=== PATIENT | male | born 1960 | race Caucasian/White ===

== ENCOUNTER → 2020-07-03 14:37 | Outpatient (BNVA) | payer OTHER, SELFPAY | PROVIDERS: PCP Internal Medicine; Referring Provider Internal Medicine; Visit Provider Nurse Practitioner Family | DX: Z76.89 Persons encountering health services in other specified circumstances (principal) ==

== ENCOUNTER 2020-08-04 08:49 | Outpatient (REF) | payer OTHER, SELFPAY | END 2020-08-04 08:50 | disposition home or self-care (01) | LOC: HO.LAB 08:49 | PROVIDERS: PCP Internal Medicine; Visit Provider Internal Medicine | DX: Z20.828 Contact with and (suspected) exposure to other viral communicable diseases (principal) | CPT/HCPCS: U0003 ==

== ENCOUNTER → 2020-08-28 11:55 | Outpatient (BNVA) | payer OTHER, SELFPAY | PROVIDERS: PCP Internal Medicine; Referring Provider Internal Medicine; Visit Provider Internal Medicine Endocrinology, Diabetes & Metabolism | DX: Z76.89 Persons encountering health services in other specified circumstances (principal) ==

== ENCOUNTER 2020-08-29 09:09 | Outpatient (REF) | payer OTHER, SELFPAY ==
[2020-08-29 10:25] LABS: Hematocrit 47.2 % (42-52); Hemoglobin 15.3 g/dl (14.0-18.0); Mean Corpuscular HGB Conc 32.4 g/dl (31.0-36.0); Mean Corpuscular Hemoglobin 29.3 pg (27.0-33.0); Mean Corpuscular Volume 90.2 fL (80-98); Mean Platelet Volume 9.6 fL (9.4-12.4); Platelet Count 124 X10*3/uL (160-400); Red Blood Count 5.23 X10*6/uL (4.60-5.80); Red Cell Distribution Width 13.5 % (11.0-16.0); White Blood Count 4.3 X10*3/uL (4.8-10.8)
[2020-08-29 10:54] LABS: Estimated Average Glucose 137 mg/dL; Hemoglobin A1c % 6.4 %
[2020-08-29 11:03] LABS: Alanine Aminotransferase 106 U/L (0-40); Albumin Level 4.1 g/dL (3.5-5.0); Alkaline Phosphatase 87 U/L (39-117); Anion Gap 14 (12-20); Aspartate Amino Transferase 186 U/L (5-37); Blood Urea Nitrogen 21 mg/dL (9-16); Calcium 8.8 mg/dL (8.4-10.2); Carbon Dioxide 30 mmol/L (22-29); Chloride 101 mmol/L (96-108); Cholesterol 136 mg/dL; Estimated Glomerular Filt Rate 54; Glucose Fasting 125 mg/dL (60-99); HDL Cholesterol 50 mg/dL; LDL Cholesterol Calculated 77 mg/dl; Potassium 4.9 mmol/l (3.3-5.1); Sodium 140 mmol/L (135-145); Total Protein 7.1 g/dL (6.5-8.0); Triglycerides 46 mg/dL
[2020-08-29 11:18] LABS: Creatinine Urine 86.81 mg/dL; Microalbum/Creatinine Ratio Ur 176.2 ug/mg cr
[2020-08-29 11:18] LABS: Vitamin D 25-OH Total 34.8 ng/mL (>30)
[2020-08-29 11:21] LABS: Vitamin B12 826 pg/mL (200-900)
[2020-08-30 09:47] LABS: LDL Cholesterol Direct 81 mg/dL (<100)
== END 2020-08-29 09:10 | disposition home or self-care (01) ==
LOC: HO.10HDL 09:09
PROVIDERS: Visit Provider Internal Medicine Endocrinology, Diabetes & Metabolism
DX: E11.65 Type 2 diabetes mellitus with hyperglycemia (principal)
CPT/HCPCS: 36415; 80053; 80061; 82043; 82306; 82607; 83036; 83721; 85027

== ENCOUNTER → 2020-09-07 15:17 | Outpatient (BNVA) | payer OTHER, SELFPAY | PROVIDERS: PCP Internal Medicine; Visit Provider Nurse Practitioner Family | DX: Z76.89 Persons encountering health services in other specified circumstances (principal) ==

== ENCOUNTER 2020-09-08 07:23 | Outpatient (REF) | payer OTHER, SELFPAY ==
[2020-09-08 08:10] LABS: Red Cell Distribution Width 13.2 % (11.0-16.0)
[2020-09-08 08:12] LABS: Hematocrit 46.3 % (42-52); Hemoglobin 15.2 g/dl (14.0-18.0); Mean Corpuscular HGB Conc 32.8 g/dl (31.0-36.0); Mean Corpuscular Hemoglobin 29.2 pg (27.0-33.0); Mean Platelet Volume 9.2 fL (9.4-12.4); Platelet Count 123 X10*3/uL (160-400)
[2020-09-08 08:41] LABS: Alanine Aminotransferase 94 U/L (0-40); Alkaline Phosphatase 91 U/L (39-117); Anion Gap 11 (12-20); Aspartate Amino Transferase 36 U/L (5-37); Bilirubin Total 0.4 mg/dL (0.0-1.0); Blood Urea Nitrogen 27 mg/dL (9-16); Calcium 9.3 mg/dL (8.4-10.2); Carbon Dioxide 31 mmol/L (22-29); Chloride 104 mmol/L (96-108); Estimated Glomerular Filt Rate 50; Glucose Random 133 mg/dL (60-115); Sodium 141 mmol/L (135-145)
[2020-09-08 09:04] LABS: Ferritin 176 ng/mL (20-250)
[2020-09-10 08:29] LABS: HBS Num1 0.37 mIU/mL (0-7.99); HBsAGNum1 0.45 S/CO (0.00-0.99); Hepatitis B Surface Antigen Negative (Negative); ~Hepatitis B Surface Antibody NONREACTIVE (Nonreactive)
[2020-09-10 09:08] LABS: HBc Num1 0.11 S/CO (0.00-0.79); Hepatitis B Core Antibody Nonreactive (Nonreactive); ~HepC Num1 0.81 S/CO (0.00-0.79)
[2020-09-10 13:03] LABS: Alpha Fetoprotein 1.3 ng/mL (<6.1); Mitochondrial Antibodies NEGATIVE (NEGATIVE)
[2020-09-10 16:12] LABS: Anti Nuclear Antibody Screen POSITIVE (NEGATIVE); Anti Nuclear Antibody Titer 1:40 titer
[2020-09-12 09:31] LABS: ~Hepatitis A Antibody IgM Nonreactive (Nonreactive)
[2020-09-13 17:47] LABS: Smooth Muscle Antibody <20 U (<20)
[2020-09-15 07:57] LABS: ~HepC Num2 0.46; ~HepC Num3 0.44; ~Hepatitis C Antibody NONREACTIVE (Nonreactive)
== END 2020-09-08 07:24 | disposition home or self-care (01) ==
LOC: HO.LAB 07:23
PROVIDERS: Absent Provider Internal Medicine Endocrinology, Diabetes & Metabolism; PCP Internal Medicine; Visit Provider Nurse Practitioner Family
DX: Z01.818 Encounter for other preprocedural examination (principal); R74.8 Abnormal levels of other serum enzymes; K76.0 Fatty (change of) liver, not elsewhere classified
CPT/HCPCS: 36415; 80053; 82105; 82728; 85027; 86038; 86039; 86255; 86256; 86704; 86706; 86709; 86803; 87340

== ENCOUNTER 2020-10-01 07:25 | Outpatient (REF) | payer OTHER, SELFPAY ==
[2020-10-01 08:42] LABS: Alanine Aminotransferase 29 U/L (0-40); Albumin Level 3.6 g/dL (3.5-5.0); Alkaline Phosphatase 81 U/L (39-117); Aspartate Amino Transferase 12 U/L (5-37); Bilirubin Direct 0.2 mg/dL (0.0-0.5); Bilirubin Total 0.3 mg/dL (0.0-1.0); Total Protein 6.4 g/dL (6.5-8.0); Uric Acid 4.5 mg/dL (3.4-7.0)
[2020-10-01 08:46] LABS: Alanine Aminotransferase 29 U/L (0-40); Albumin Level 3.6 g/dL (3.5-5.0); Alkaline Phosphatase 82 U/L (39-117); Aspartate Amino Transferase 13 U/L (5-37); Bilirubin Direct 0.2 mg/dL (0.0-0.5); Bilirubin Total 0.3 mg/dL (0.0-1.0); Total Protein 6.4 g/dL (6.5-8.0)
== END 2020-10-01 07:26 | disposition home or self-care (01) ==
LOC: HO.LAB 07:25
PROVIDERS: Absent Provider Internal Medicine Endocrinology, Diabetes & Metabolism; PCP Internal Medicine; Visit Provider Physician Assistant Medical
DX: M10.9 Gout, unspecified (principal); E79.0 Hyperuricemia without signs of inflammatory arthritis and tophaceous disease; R74.8 Abnormal levels of other serum enzymes
CPT/HCPCS: 36415; 80076; 84550

== ENCOUNTER 2020-10-10 12:35 | Outpatient (REF) | payer OTHER, SELFPAY ==
--- NOTE | ~2020-10-10 | US_ITS ---
EXAMINATION: US COMPLETE ABDOMEN WITH LIVER ELASTOGRAPHY CLINICAL INFORMATION: Abnormal liver function tests COMPARISON: Previous exams most recent October 2018 TECHNIQUE: Real-time imaging of the abdominal viscera. Noninvasive ultrasound liver fibrosis assessment is performed using Vance ElastPQ point quantification shear wave elastography (pSWE) with a C5-2 MHz transducer. Multiple elastography samples are obtained. FINDINGS: PANCREAS: Not well visualized due to bowel gas ABDOMINAL AORTA: The proximal, middle, and distal aortic segments are normal in caliber. INFERIOR VENA CAVA: Visualized portions are normal. LIVER: Liver echotexture is slightly increased. Liver is normal in size and contour. No focal lesion or intrahepatic biliary duct dilatation. The right lobe measures 16 cm in length. The left lobe measures 9 cm in length. Portal flow is normal/hepatopedal.. Shear wave liver elastography median stiffness is 1.3 m/s (reference: normal median stiffness is 1.3 m/s or less). IQR/median stiffness to assess sampling precision is 0.16 (reference: good quality data set is IQR/median stiffness of 0.15 or less). GALLBLADDER: Post cholecystectomy COMMON BILE DUCT: Normal in caliber measuring 0.6 cm in diameter. RIGHT KIDNEY: Normal. No hydronephrosis. No renal calculi or focal parenchymal lesions. The kidney measures 11.4 cm in maximum dimension. LEFT KIDNEY: Normal. No hydronephrosis. No renal calculi or focal parenchymal lesions. The kidney measures 11 cm in maximum dimension. SPLEEN: Normal. The spleen measures 11.4 cm in maximum dimension. FREE FLUID: None. US/US abdomen comp w elastography IMPRESSION: 1. Impression: Slightly echogenic liver. Limited visualization of the pancreas. Otherwise unremarkable exam. 2. Liver elastography: Normal. REFERENCE: Society of Radiologists in Ultrasound Liver Stiffness Thresholds (2020): LIVER STIFFNESS THRESHOLDS: *Liver Stiffness equal or less than 1.3 m/s: High probability of being normal. *Liver Stiffness less than 1.7 m/s: In the absence of other known clinical signs, rules out compensated advanced chronic liver disease. *Liver Stiffness 1.7-2.1 m/s: Suggestive of compensated advanced chronic liver disease but need further test for confirmation. *Liver Stiffness over 2.1 m/s: Rules in compensated advanced chronic liver disease. *Liver Stiffness over 2.4 m/s: Suggestive of clinically significant portal hypertension. QUALITY OF DATA SET: *IQR/Median value equal or less than 0.15 implies a quality data set. *IQR/Median value over 0.15 implies a poor quality data set. SIGNIFICANT CHANGE FROM PRIOR EXAM: Significant change if liver stiffness measurement is 10% or greater from prior exam. OTHER CONSIDERATIONS: The stage of liver fibrosis may be overestimated in the setting of acute hepatitis, liver inflammation, elevated liver function tests, hepatic vascular congestion, obstructive cholestasis, non-fasting state, and infiltrative diseases such as amyloidosis and lymphoma. In some patients with NAFLD, the liver stiffness thresholds for compensated advanced chronic liver disease may be lower. In causes other than viral hepatitis and NAFLD, liver stiffness thresholds are not well established.
== END 2020-10-10 12:36 | disposition home or self-care (01) ==
LOC: HO.US 12:35
PROVIDERS: PCP Internal Medicine; Visit Provider Nurse Practitioner Family
DX: R74.8 Abnormal levels of other serum enzymes (principal)
CPT/HCPCS: 76705; 76981

== ENCOUNTER → 2020-11-27 14:03 | Outpatient (BNVA) | payer OTHER, SELFPAY | PROVIDERS: PCP Internal Medicine; Visit Provider Internal Medicine Endocrinology, Diabetes & Metabolism | DX: E11.65 Type 2 diabetes mellitus with hyperglycemia (principal); E11.21 Type 2 diabetes mellitus with diabetic nephropathy; Z79.4 Long term (current) use of insulin; E66.9 Obesity, unspecified | CPT/HCPCS: 82947 ==

== ENCOUNTER 2020-11-28 06:18 | Outpatient (REF) | payer OTHER, SELFPAY ==
[2020-11-28 18:05] LABS: Alanine Aminotransferase 99 U/L (0-40); Albumin Level 3.9 g/dL (3.5-5.0); Alkaline Phosphatase 117 U/L (39-117); Anion Gap 11 (12-20); Aspartate Amino Transferase 173 U/L (5-37); Bilirubin Total 0.7 mg/dL (0.0-1.0); Blood Urea Nitrogen 23 mg/dL (9-16); Carbon Dioxide 33 mmol/L (22-29); Chloride 103 mmol/L (96-108); Cholesterol 188 mg/dL; Estimated Glomerular Filt Rate 49; Glucose Fasting 86 mg/dL (60-99); HDL Cholesterol 43 mg/dL; LDL Cholesterol Calculated 122 mg/dl; Potassium 4.9 mmol/L (3.3-5.1); Sodium 142 mmol/L (135-145); Triglycerides 117 mg/dL
[2020-11-29 01:52] LABS: LDL Cholesterol Direct 123 mg/dL (<100)
== END 2020-11-28 06:19 | disposition home or self-care (01) ==
LOC: HO.HMGCLDS 06:18
PROVIDERS: Visit Provider Internal Medicine Endocrinology, Diabetes & Metabolism
DX: E11.65 Type 2 diabetes mellitus with hyperglycemia (principal)
CPT/HCPCS: 36415; 80053; 80061; 83721

== ENCOUNTER → 2021-10-09 07:54 | Outpatient (BNVA) | payer OTHER, SELFPAY | PROVIDERS: PCP Internal Medicine; Visit Provider Nurse Practitioner Gerontology | DX: E11.21 Type 2 diabetes mellitus with diabetic nephropathy (principal); E11.42 Type 2 diabetes mellitus with diabetic polyneuropathy; E78.00 Pure hypercholesterolemia, unspecified; I10 Essential (primary) hypertension; Z79.4 Long term (current) use of insulin | CPT/HCPCS: 82947; 83036 ==

== ENCOUNTER → 2022-01-08 07:40 | Outpatient (BNVA) | payer OTHER, SELFPAY | PROVIDERS: PCP Internal Medicine; Visit Provider Nurse Practitioner Gerontology | DX: E11.42 Type 2 diabetes mellitus with diabetic polyneuropathy (principal); E11.21 Type 2 diabetes mellitus with diabetic nephropathy; E78.00 Pure hypercholesterolemia, unspecified; I10 Essential (primary) hypertension; Z79.4 Long term (current) use of insulin | CPT/HCPCS: 82947 ==

== ENCOUNTER 2022-03-08 07:27 | Outpatient (REF) | payer OTHER, SELFPAY ==
[2022-03-08 07:46] LABS: MANUAL DIFF FLAG NO
[2022-03-08 08:27] LABS: Basophils Percent Auto 0.7 % (0-2); Eosinophils Absolute Auto 0.1 X10*3/uL (0.0-0.4); Eosinophils Percent Auto 1.9 % (0-4); Hematocrit 47.2 % (42.0-52.0); Hemoglobin 14.9 g/dl (14.0-18.0); Imm Gran Abs Auto 0.01 X10*3/uL (0.00-0.03); Imm Gran Pct Auto 0.2 % (0.0-0.4); Lymphocytes Absolute Auto 1.8 X10*3/uL (1.2-4.9); Lymphocytes Percent Auto 43.8 % (20-40); Mean Corpuscular HGB Conc 31.6 g/dl (31.0-36.0); Mean Corpuscular Hemoglobin 28.9 pg (27.0-33.0); Mean Corpuscular Volume 91.7 fL (80.0-98.0); Mean Platelet Volume 10.2 fL (9.4-12.4); Monocytes Absolute Auto 0.2 X10*3/uL (0.1-1.2); Monocytes Percent Auto 5.8 % (2-11); Neutrophils Percent Auto 47.6 % (45-73); Platelet Count 115 X10*3/uL (160-400); Red Blood Count 5.15 X10*6/uL (4.60-5.80); Red Cell Distribution Width 13.2 % (11.0-16.0); White Blood Count 4.1 X10*3/uL (4.8-10.8)
[2022-03-08 08:59] LABS: Estimated Average Glucose 140 mg/dL; Hemoglobin A1c % 6.5 %
[2022-03-08 09:00] LABS: Alanine Aminotransferase 65 U/L (0-40); Albumin Level 3.9 g/dL (3.5-5.0); Alkaline Phosphatase 118 U/L (39-117); Anion Gap 12 (12-20); Aspartate Amino Transferase 61 U/L (5-37); Bilirubin Total 0.5 mg/dL (0.0-1.0); Blood Urea Nitrogen 40 mg/dL (9-16); Calcium 8.8 mg/dL (8.4-10.2); Carbon Dioxide 28 mmol/L (22-29); Chloride 105 mmol/L (96-108); Cholesterol 167 mg/dL; Estimated Glomerular Filt Rate 42; Glucose Fasting 137 mg/dL (60-99); HDL Cholesterol 40 mg/dL; LDL Cholesterol Calculated 110 mg/dl; Potassium 5.2 mmol/L (3.3-5.1); Sodium 140 mmol/L (135-145); Triglycerides 86 mg/dL
[2022-03-08 09:22] LABS: Prostate Specific Antigen Scr 0.88 ng/mL (<0.05-4.0)
== END 2022-03-08 07:28 | disposition home or self-care (01) ==
LOC: HO.LAB 07:27
PROVIDERS: Absent Provider Internal Medicine; PCP Internal Medicine; Visit Provider Nurse Practitioner Gerontology
DX: Z00.00 Encounter for general adult medical examination without abnormal findings (principal); Z12.5 Encounter for screening for malignant neoplasm of prostate; Z13.0 Encounter for screening for diseases of the blood and blood-forming organs and certain disorders involving the immune mechanism; E11.9 Type 2 diabetes mellitus without complications; I10 Essential (primary) hypertension; E78.5 Hyperlipidemia, unspecified
CPT/HCPCS: 36415; 80053; 80061; 83036; 84153; 85025

== ENCOUNTER 2022-09-15 09:35 | Outpatient (REF) | payer OTHER, SELFPAY ==
[2022-09-15 09:55] LABS: MANUAL DIFF FLAG NO
[2022-09-15 10:08] LABS: Basophils Percent Auto 0.8 % (0-2); Eosinophils Absolute Auto 0.1 X10*3/uL (0.0-0.4); Hematocrit 48.6 % (42.0-52.0); Hemoglobin 15.6 g/dl (14.0-18.0); Imm Gran Abs Auto 0.02 X10*3/uL (0.00-0.03); Imm Gran Pct Auto 0.6 % (0.0-0.4); Lymphocytes Absolute Auto 1.6 X10*3/uL (1.2-4.9); Lymphocytes Percent Auto 44.8 % (20-40); Mean Corpuscular HGB Conc 32.1 g/dl (31.0-36.0); Mean Corpuscular Hemoglobin 28.8 pg (27.0-33.0); Mean Corpuscular Volume 89.8 fL (80.0-98.0); Mean Platelet Volume 9.6 fL (9.4-12.4); Monocytes Absolute Auto 0.2 X10*3/uL (0.1-1.2); Monocytes Percent Auto 4.8 % (2-11); Neutrophils Absolute Auto 1.7 x10*3/uL (2.0-8.3); Platelet Count 124 X10*3/uL (160-400); Red Blood Count 5.41 X10*6/uL (4.60-5.80); Red Cell Distribution Width 13.2 % (11.0-16.0); White Blood Count 3.5 X10*3/uL (4.8-10.8)
[2022-09-15 10:21] LABS: Estimated Average Glucose 140 mg/dL; Hemoglobin A1c % 6.5 %
[2022-09-15 13:40] LABS: Alanine Aminotransferase 11 U/L (0-40); Albumin Level 2.7 g/dL (3.5-5.0); Alkaline Phosphatase 86 U/L (39-117); Anion Gap 11 (12-20); Aspartate Amino Transferase 19 U/L (5-37); Bilirubin Total 0.5 mg/dL (0.0-1.0); Blood Urea Nitrogen 32 mg/dL (9-16); Calcium 8.7 mg/dL (8.4-10.2); Carbon Dioxide 29 mmol/L (22-29); Chloride 106 mmol/L (96-108); Cholesterol 246 mg/dL; Estimated Glomerular Filt Rate 50; Glucose Fasting 136 mg/dL (60-99); HDL Cholesterol 55 mg/dL; LDL Cholesterol Calculated 171 mg/dl; Potassium 5.1 mmol/L (3.3-5.1); Sodium 141 mmol/L (135-145); Total Protein 5.3 g/dL (6.5-8.0); Triglycerides 100 mg/dL
[2022-09-15 13:44] LABS: Microalbum/Creatinine Ratio Ur 1765.2 ug/mg cr; Microalbumin Urine > 2000.0 mg/L
== END 2022-09-15 09:36 | disposition home or self-care (01) ==
LOC: HO.LAB 09:35
PROVIDERS: PCP Internal Medicine; Visit Provider Internal Medicine
DX: D64.9 Anemia, unspecified (principal); E78.5 Hyperlipidemia, unspecified; N28.9 Disorder of kidney and ureter, unspecified; E66.01 Morbid (severe) obesity due to excess calories; E11.65 Type 2 diabetes mellitus with hyperglycemia
CPT/HCPCS: 36415; 80053; 80061; 82043; 83036; 85025

== ENCOUNTER 2023-03-13 08:54 | Outpatient (AMB) | payer OTHER, SELFPAY ==
[2023-03-13 08:55] VITALS: BP 122/80; PULSE 65; O2SAT 97; BMI 26.6
--- NOTE | 2023-03-13 08:55 | MHC.PC.OV ---
Vital Signs 03/13/23 08:55 Height 6 ft 4 in Weight 218 lb 4 oz BMI 26.6 BP 122/80 Blood Pressure Location Lt brachial Position Sitting Pulse 65 Pulse Source Pulse Oximeter Pulse Oximetry (%) 97 Oxygen Delivery Method Room Air Intake Visit Reasons: Annual Exam Floatman Required: No Accompanied by: Self / Same As Patient Allergies No Known Allergies Allergy (Verified 03/13/23 08:56) Medication List - Last Reconciled 03/13/23 by Juan A Freeman MD allopurinol 150 mg (1/2 x 300 mg) PO DAILY ascorbate calcium (vitamin C) 500 mg PO DAILY bisacodyl (Dulcolax (bisacodyl)) 10 mg (2 x 5 mg) PO ONCE 1 day blood sugar diagnostic (FreeStyle Lite Strips) 1 strip miscellaneous QID 30 days blood-glucose meter (FreeStyle Lite Meter kit) As directed to test blood sugar at least 4 times a day dulaglutide (Trulicity) 1.5 mg (0.5 mL) subcut QWEEK duloxetine 30 mg PO DAILY empagliflozin (Jardiance) 10 mg PO QAM gabapentin 400 mg PO TID indomethacin [id number] mg PO TID PRN lancets (FreeStyle Lancets) 3 times a day Lantus Solostar U-100 Insulin (insulin glargine) 20 units (0.2 mL) subcut QPM 30 days NS lisinopril 40 mg PO BID pen needle, diabetic (BD Beth 2nd Gen Pen Needle) test 4x's daily zinc acetate (Galzin) 50 mg PO DAILY Tobacco use date assessed: 03/13/23 Dental Screening Dental Screen Date: 03/13/23 Did you have a dental visit in the last 12 months?: Yes Did you have a dental problem in the last 6 months where you did not have access to dental care?: No Was dental information given to patient?: Patient has dentist HPI Annual Exam HPI Details DM gout and HTN; sees endo [facility] Medical History (Updated 03/13/23 @ 09:25 by Juan A Freeman MD) CKD (chronic kidney disease) stage 3, GFR 30-59 ml/min Diabetes mellitus Diabetes type 2, uncontrolled Elevated liver enzymes HTN (hypertension) Hypercholesteremia 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 Non-alcoholic fatty 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 1. Little interest or pleasure in doing things: not at all 2. Feeling down, depressed, or hopeless: not at all 3. Trouble falling or staying asleep, or sleeping too much: not at all 4. Feeling tired or having little energy: not at all 5. Poor appetite or overeating: not at all 6. Feeling bad about yourself - or that you are a failure or have let yourself or your family down: not at all 7. Trouble concentrating on things, such as reading the newspaper or watching television: not at all 8. Moving or speaking so slowly that other people could have noticed. Or the opposite - being so fidgety or restless that you have been moving around a lot more than usual: not at all 9. Thoughts that you would be better off or of hurting yourself in some way: not at all Total score: 0 Depression Screening Interpretation: Negative 32934 - PHQ-9 Billing: Yes Source: Developed by Drs. Bari Haas, Kim Matthew, Chance Santana and colleagues, with an educational bhargavi from [employer]. Thrive Questionnaire Date Thrive assessed: 03/13/23 I am a: Patient What is your living situation today?: I have a steady place to live Within the past 12 months, did the food you bought not last and you didn't have the money to get more?: Never true Within the past 12 months, did you worry whether your food would run out before you got money to buy more?: Never true Do you have trouble paying for medicines?: No Do you have trouble getting transportation to medical appointments?: No Do you have trouble paying your heating and electricity bill?: No Do you have trouble taking care of your child, family member or friend?: No Do you have trouble with day-to-day activities such as bathing, preparing meals, shopping, managing finances, etc.?: No Are you currently unemployed and looking for a job?: No Are you interested in more education?: No Please select the resources that you would like help with: None Currently or been in a relationship where the following occur: no concerns reported AUDIT C Alcohol Use Questionnaire (AUDIT-C) 1. How often do you have a drink containing alcohol?: 2-4 times a month 2. How many drinks containing alcohol do you have on a typical day when you are drinking?: 1 or 2 3. How often do you have six or more drinks on one occasion?: Never Total Score: 2 Score Reviewed/Action Taken: Yes MAVIS-7 AMB Questionnaire MAVIS-7 Date MAVIS - 7 assessed: 03/13/23 Feeling nervous, anxious, or on edge: 0 = Not at all Not being able to stop or control worryin = Not at all Worrying too much about different things: 0 = Not at all Trouble relaxin = Not at all Being so restless that it is hard to sit still: 0 = Not at all Becoming easily annoyed or irritable: 0 = Not at all Feeling afraid as if something awful might happen: 0 = Not at all Total MAVIS-7 score (0-4 normal; 5-9 mild; 10-14 moderate; 15-21 severe): 0 Source: Developed by Drs. Bari Haas, Kim Matthew, Chance Santana and colleagues, with an educational bhargavi from [employer]. MAVIS-7 Assessment Billing MAVIS-7 Assessment Tool: MAVIS-7 Assessment 37705 Review of Systems Const Denies chills, Denies fatigue, Denies headache(s) and Denies weight loss Eyes Denies change in vision, Denies diplopia and Denies eye pain ENT Denies vertigo, Denies dizziness, Denies headache(s) and Denies nasal discharge Card Denies chest pain, Denies rapid heart rate and Denies dyspnea on exertion Resp Denies chest congestion, Denies cough, Denies pain with cough and Denies dyspnea on exertion GI Denies abdominal pain, Denies hematochezia and Denies change in bowel habits Musc Denies myalgias, Denies arthralgias and Denies joint swelling Skin/Breast Denies lesions and Denies unusual bruising Neuro Denies vertigo, Denies dizziness, Denies headache(s) and Denies focal weakness Endo Denies fatigue Physical exam (Primary Care) Vital Signs: Last Vital Signs Pulse 65 03/13/23 08:55 BP 122/80 03/13/23 08:55 Pulse Ox 97 03/13/23 08:55 Oxygen Delivery Method Room Air 03/13/23 08:55 BMI result Body Mass Index 26.6 Tobacco/Smoking Status: Tobacco use Status Tobacco use date assessed 03/13/23 03/13/23 09:00 Patient Tobacco Use Status Never used Tobacco 03/13/23 09:00 e-Cigarette/Vaping Use Never Used 03/13/23 09:00 PHQ-9: PHQ-9 Score PHQ-9: Total score 0 03/13/23 09:00 Depression Screening Interpretation: Negative Thrive Assessment: Date of Thrive Assessment Date Thrive assessed 03/13/23 03/13/23 09:00 Currently or been in a relationship where the following occur: no concerns reported Const General: cooperative, healthy appearing and no acute distress Orientation/consciousness: oriented to person, oriented to place and oriented to time HENSD Head: Yes normal to inspection, Yes normocephalic and Yes atraumatic Mouth: Normal oral and palatal mucosa present and tongue normal Throat: Yes posterior oropharynx normal and Yes uvula midline Eyes General: appearance normal, both eyes and all related structures Neck Neck: Yes normal visual inspection, Yes full ROM and Yes no lymphadenopathy Thyroid: Thyroid normal Carotids: normal carotid upstroke Chest Chest palpation & inspection: normal inspection of the chest Resp Effort & Inspection: normal respiratory effort and able to speak in complete sentences Auscultation: clear to auscultation bilaterally Cardio Jugular venous distension: no JVD Palpation: normal PMI Rate: regular rate Rhythm: regular rhythm Heart sounds: S1 normal heart sound present and S2 normal heart sound present GI Inspection: Yes normal to inspection Palpation (GI): Soft to palpation and No hepatosplenomegaly present Auscultation: normal bowel sounds General: Yes no CVA tenderness Back/Spine/Pelvis Back: no CVA tenderness Skin General skin exam: no rashes or lesions noted Neuro General: oriented to person, oriented to place and oriented to time Extrem General: Yes normal to inspection and Yes full ROM Assessment and Plan Assessment & Plan (1) Physical exam: Code(s): Z00.00 - Encounter for general adult medical examination without abnormal findings Plan: stable (2) HTN (hypertension): Code(s): I10 - Essential (primary) hypertension Plan: stable; same rx (3) Type 2 diabetes mellitus with diabetic nephropathy: Code(s): E11.21 - Type 2 diabetes mellitus with diabetic nephropathy Plan: stable; per endo (4) Gout: Code(s): M10.9 - Gout, unspecified Plan: stable Coding Level of Care Code Est Pt Prev Care 40-64y(50901) Diagnoses Physical exam Z00.00 HTN (hypertension) I10 Type 2 diabetes mellitus with diabetic nephropathy E11.21 Gout M10.9 Additional Codes MAVIS-7 Assessment Billing - MAVIS-7 Assessment Tool: MAVIS-7 Assessment [id number] ([id number])
== END 2023-03-13 10:48 | disposition home or self-care (01) ==
PROVIDERS: Visit Provider Internal Medicine
DX: Z00.00 Encounter for general adult medical examination without abnormal findings (principal); I10 Essential (primary) hypertension; E11.21 Type 2 diabetes mellitus with diabetic nephropathy; M10.9 Gout, unspecified
CPT/HCPCS: 99396

== ENCOUNTER 2024-03-18 12:50 | Outpatient (AMB) | payer BC, SELFPAY ==
[2024-03-18 12:53] VITALS: BP 102/60; PULSE 88; O2SAT 97; BMI 25.8
--- NOTE | 2024-03-18 12:53 | MHC.PC.OV ---
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 per policy Accompanied by: Self / Same As Patient Allergies No Known Allergies Allergy (Verified 03/18/24 12:53) Medication List - Last Reconciled 03/21/24 by Juan A Freeman MD allopurinol 150 mg (1/2 x 300 mg) PO DAILY allopurinol mg PO ascorbate calcium (vitamin C) 500 mg PO DAILY blood sugar diagnostic (FreeStyle Lite Strips) 1 strip miscellaneous QID 30 days blood-glucose meter (FreeStyle Lite Meter kit) As directed to test blood sugar at least 4 times a day colchicine 0.6 mg PO DAILY dulaglutide (Trulicity) 1.5 mg (0.5 mL) subcut QWEEK duloxetine 60 mg PO DAILY empagliflozin (Jardiance) 25 mg PO DAILY gabapentin 400 mg PO TID lancets (FreeStyle Lancets) 3 times a day Lantus Solostar U-100 Insulin (insulin glargine) 20 units (0.2 mL) subcut QPM 30 days NS lisinopril 40 mg PO BID pen needle, diabetic (BD Beth 2nd Gen Pen Needle) test 4x's daily rosuvastatin 5 mg PO DAILY zinc acetate (Galzin) 50 mg PO DAILY Tobacco use date assessed: 03/18/24 Dental Screening Dental Screen Date: 03/18/24 Did you have a dental visit in the last 12 months?: Yes Did you have a dental problem in the last 6 months where you did not have access to dental care?: No Was dental information given to patient?: Patient has dentist HPI Annual PE HPI Details diabetes hypertension and hyperlipidemia; goes to team guide is [facility] Medical History (Updated 03/13/23 @ 09:25 by Juan A Freeman MD) Type 2 diabetes mellitus with diabetic nephropathy Non-alcoholic fatty liver disease Elevated liver enzymes CKD (chronic kidney disease) stage 3, GFR 30-59 ml/min alf (current) use of insulin Diabetes type 2, uncontrolled Hypercholesteremia HTN (hypertension) Diabetes mellitus Surgical History History of colonoscopy Hx of cholecystectomy Hx of eye surgery Hx of melanoma excision Family History Father History of cancer History of heart attack Mother Alive and well Social History Housing: House Alcohol intake: never Patient Tobacco Use Status: Never used Tobacco e-Cigarette/Vaping Use: Never Used Second Hand Smoke Exposure: No service: No Current occupational status: employed Cognitive needs: No Hearing needs: No Vision needs: No Questionnaire PHQ-9 Over the last 2 weeks, how often have you been bothered by any of the following problems? 1. Little interest or pleasure in doing things: not at all 2. Feeling down, depressed, or hopeless: not at all 3. Trouble falling or staying asleep, or sleeping too much: not at all 4. Feeling tired or having little energy: not at all 5. Poor appetite or overeating: not at all 6. Feeling bad about yourself - or that you are a failure or have let yourself or your family down: not at all 7. Trouble concentrating on things, such as reading the newspaper or watching television: not at all 8. Moving or speaking so slowly that other people could have noticed. Or the opposite - being so fidgety or restless that you have been moving around a lot more than usual: not at all 9. Thoughts that you would be better off or of hurting yourself in some way: not at all Total score: 0 Depression Screening Interpretation: Negative Depression Screening Done: Yes [id number] - PHQ-9 Billing: Yes Source: Developed by Drs. Bari Haas, Kim Matthew, Chance Santana and colleagues, with an educational bhargavi from [employer]. Thrive Questionnaire Date Thrive assessed: 03/18/24 I am a: Patient What is your living situation today?: I have a steady place to live Within the past 12 months, did the food you bought not last and you didn't have the money to get more?: Never true Within the past 12 months, did you worry whether your food would run out before you got money to buy more?: Never true Do you have trouble paying for medicines?: No Do you have trouble getting transportation to medical appointments?: No Do you have trouble paying your heating and electricity bill?: No Do you have trouble taking care of your child, family member or friend?: No Do you have trouble with day-to-day activities such as bathing, preparing meals, shopping, managing finances, etc.?: No Are you currently unemployed and looking for a job?: No Are you interested in more education?: No Please select the resources that you would like help with: None THRIVE Score: 0 AUDIT C Alcohol Use Questionnaire (AUDIT-C) 1. How often do you have a drink containing alcohol?: 2-4 times a month 2. How many drinks containing alcohol do you have on a typical day when you are drinking?: 1 or 2 3. How often do you have six or more drinks on one occasion?: Never Total Score: 2 Score Reviewed/Action Taken: Yes MAVIS-7 AMB Questionnaire MAVIS-7 Date MAVIS - 7 assessed: 03/18/24 Feeling nervous, anxious, or on edge: 0 = Not at all Not being able to stop or control worryin = Not at all Worrying too much about different things: 0 = Not at all Trouble relaxin = Not at all Being so restless that it is hard to sit still: 0 = Not at all Becoming easily annoyed or irritable: 0 = Not at all Feeling afraid as if something awful might happen: 0 = Not at all Total MAVIS-7 score (0-4 normal; 5-9 mild; 10-14 moderate; 15-21 severe): 0 Source: Developed by Drs. Bari Haas, Kim Matthew, Chance Santana and colleagues, with an educational bhargavi from [employer]. Review of Systems Const Denies chills, Denies fatigue, Denies headache(s) and Denies weight loss Eyes Denies change in vision, Denies diplopia and Denies eye pain ENT Denies vertigo, Denies dizziness, Denies headache(s) and Denies nasal discharge Card Denies chest pain, Denies rapid heart rate and Denies dyspnea on exertion Resp Denies chest congestion, Denies cough, Denies pain with cough and Denies dyspnea on exertion GI Denies abdominal pain, Denies hematochezia and Denies change in bowel habits Musc Denies myalgias, Denies arthralgias and Denies joint swelling Skin/Breast Denies lesions and Denies unusual bruising Neuro Denies vertigo, Denies dizziness, Denies headache(s) and Denies focal weakness Endo Denies fatigue Physical exam (Primary Care) Vital Signs: Last Vital Signs Pulse 88 03/18/24 12:53 BP 102/60 03/18/24 12:53 Pulse Ox 97 03/18/24 12:53 Oxygen Delivery Method Room Air 03/18/24 12:53 BMI result Body Mass Index 25.8 Tobacco/Smoking Status: Tobacco use Status Tobacco use date assessed 03/18/24 03/18/24 12:54 Patient Tobacco Use Status Never used Tobacco 03/18/24 12:54 e-Cigarette/Vaping Use Never Used 03/18/24 12:54 PHQ-9: PHQ-9 Score PHQ-9: Total score 0 03/18/24 12:54 Depression Screening Interpretation: Negative Thrive Assessment: Date of Thrive Assessment Date Thrive assessed 03/18/24 03/18/24 12:54 Const General: cooperative, healthy appearing and no acute distress Orientation/consciousness: oriented to person, oriented to place and oriented to time HENMT Head: Yes normal to inspection, Yes normocephalic and Yes atraumatic Mouth: Normal oral and palatal mucosa present and tongue normal Throat: Yes posterior oropharynx normal and Yes uvula midline Eyes General: appearance normal, both eyes and all related structures Neck Neck: Yes normal visual inspection, Yes full ROM and Yes no lymphadenopathy Thyroid: Thyroid normal Carotids: normal carotid upstroke Chest Chest palpation & inspection: normal inspection of the chest Resp Effort & Inspection: normal respiratory effort and able to speak in complete sentences Auscultation: clear to auscultation bilaterally Cardio Jugular venous distension: no JVD Palpation: normal PMI Rate: regular rate Rhythm: regular rhythm Heart sounds: S1 normal heart sound present and S2 normal heart sound present GI Inspection: Yes normal to inspection Palpation (GI): Soft to palpation and No hepatosplenomegaly present Auscultation: normal bowel sounds General: Yes no CVA tenderness Back/Spine/Pelvis Back: no CVA tenderness Skin General skin exam: no rashes or lesions noted Neuro General: oriented to person, oriented to place and oriented to time Extrem General: Yes normal to inspection and Yes full ROM Assessment and Plan Assessment & Plan (1) Physical exam: Code(s): Z00.00 - Encounter for general adult medical examination without abnormal findings Plan: stable; do labs (2) Diabetes mellitus with neuropathy: Code(s): E11.40 - Type 2 diabetes mellitus with diabetic neuropathy, unspecified Plan: stable; per endo (3) Hypercholesteremia: Code(s): E78.00 - Pure hypercholesterolemia, unspecified Plan: stable; do labs (4) HTN (hypertension): Code(s): I10 - Essential (primary) hypertension Plan: stable; same rx Orders: Orders Comprehensive [place]. Panel Fast Today Z13.9 - Encounter for screening, unspecified Thyroid Stimulating Hormone Today Z13.29 - Encounter for screening for other suspected endocrine disorder Hemoglobin A1c Today R73.9 - Hyperglycemia, unspecified Lipid Panel Today Z13.220 - Encounter for screening for lipoid disorders Complete Blood Count Auto Diff Today Z13.0 - Encounter for screening for diseases of the blood and blood-forming organs and certain disorders involving the immune mechanism Coding Level of Care Code Est Pt Prev Care 40-64y(13545) Diagnoses Physical exam Z00.00 Diabetes mellitus with neuropathy E11.40 Hypercholesteremia E78.00 HTN (hypertension) I10
== END 2024-03-18 13:17 | disposition home or self-care (01) ==
PROVIDERS: PCP Internal Medicine; Visit Provider Internal Medicine
DX: Z00.00 Encounter for general adult medical examination without abnormal findings (principal); E11.40 Type 2 diabetes mellitus with diabetic neuropathy, unspecified; E78.00 Pure hypercholesterolemia, unspecified; I10 Essential (primary) hypertension
CPT/HCPCS: 99396

== ENCOUNTER 2025-03-21 13:22 | Outpatient (AMB) | payer BC, SELFPAY ==
[2025-03-21 13:26] VITALS: BP 90/54; PULSE 80; RESP 18; TEMP 36.2; O2SAT 95; BMI 24.3
--- NOTE | 2025-03-21 13:26 | MHC.PC.OV ---
Vital Signs 03/21/25 13:26 Height 6 ft 4 in Weight 200 lb BMI 24.3 BP 90/54 L Blood Pressure Location Lt brachial Position Sitting Respiration 18 Pulse 80 Pulse Source Pulse Oximeter Temp 97.1 F Temp Source Temporal Artery Scan Pulse Oximetry (%) 95 Oxygen Delivery Method Room Air Intake Visit Reasons: ROBINSON DR Freeman Solution Developer Required: No Accompanied by: Self / Same As Patient Allergies No Known Allergies Allergy (Verified 03/21/25 13:39) Medication List - Last Reconciled 03/21/25 by FRANC Bishop allopurinol 150 mg (1/2 x 300 mg) PO DAILY allopurinol mg PO ascorbate calcium (vitamin C) 500 mg PO DAILY blood sugar diagnostic (FreeStyle Lite Strips) 1 strip miscellaneous QID 30 days blood-glucose meter (FreeStyle Lite Meter kit) As directed to test blood sugar at least 4 times a day colchicine 0.6 mg PO DAILY dulaglutide (Trulicity) 1.5 mg (0.5 mL) subcut QWEEK duloxetine 60 mg PO DAILY empagliflozin (Jardiance) 25 mg PO DAILY gabapentin 400 mg PO TID lancets (FreeStyle Lancets) 3 times a day Lantus Solostar U-100 Insulin (insulin glargine) 20 units (0.2 mL) subcut QPM 30 days NS lisinopril 40 mg PO BID pen needle, diabetic (BD Beth 2nd Gen Pen Needle) test 4x's daily rosuvastatin 5 mg PO DAILY zinc acetate (Galzin) 50 mg PO DAILY Tobacco use date assessed: 03/21/25 Dental Screening Dental Screen Date: 03/21/25 Did you have a dental visit in the last 12 months?: Yes Did you have a dental problem in the last 6 months where you did not have access to dental care?: No Was dental information given to patient?: Patient has dentist HPI [facility]INSON DR Freeman HPI Details The patient is a 65-year-old male presenting to transition care from Dr. Freeman who retired about 4 months ago. He is here for the management of chronic conditions, including diabetes mellitus, hypertension, and gout. The patient reports a history of diabetes mellitus with a recent A1c of 6.3%, indicating well-controlled blood glucose levels. He is on Lantus for diabetes management and reports no recent episodes of hyperglycemia or hypoglycemia. Hypertension has been managed with lisinopril, but recent blood pressure readings have been on the lower side, prompting a reduction in medication dosage. The patient has lost significant weight, which may have contributed to the change in blood pressure. The patient has a history of gout, managed with allopurinol, and reports no recent flare-ups. He is unsure about the dosage of colchicine and plans to confirm with his . Chronic kidney disease is noted with a creatinine level of 1.6, and the patient is aware of the condition. He has had medication adjustments in the past due to kidney function. The patient reports elevated liver enzymes, which he attributes to past alcohol use, although he currently abstains from alcohol. He has been informed of fatty liver disease, which may contribute to the enzyme elevation. The patient has a history of skin cancer, treated approximately six years ago, with no recent recurrence noted. He reports diabetic neuropathy with numbness in the fingers and joint pain in the knees and ankles, which he attributes to past weight issues. 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 Elevated liver enzymes CKD (chronic kidney disease) stage 3, GFR 30-59 ml/min alf (current) use of insulin Diabetes type 2, uncontrolled Hypercholesteremia HTN (hypertension) Diabetes mellitus Surgical History Hx of melanoma excision Hx of eye surgery Hx of cholecystectomy History of colonoscopy Family History Father History of cancer History of heart attack Mother Alive and well Social History Housing: House Alcohol intake: never Patient Tobacco Use Status: Never used Tobacco e-Cigarette/Vaping Use: Never Used Second Hand Smoke Exposure: No service: No Current occupational status: employed Cognitive needs: No Hearing needs: No Vision needs: No Questionnaire PHQ-9 Over the last 2 weeks, how often have you been bothered by any of the following problems? 1. Little interest or pleasure in doing things: not at all 2. Feeling down, depressed, or hopeless: not at all 3. Trouble falling or staying asleep, or sleeping too much: nearly every day 4. Feeling tired or having little energy: not at all 5. Poor appetite or overeating: not at all 6. Feeling bad about yourself - or that you are a failure or have let yourself or your family down: not at all 7. Trouble concentrating on things, such as reading the newspaper or watching television: not at all 8. Moving or speaking so slowly that other people could have noticed. Or the opposite - being so fidgety or restless that you have been moving around a lot more than usual: not at all 9. Thoughts that you would be better off or of hurting yourself in some way: not at all Total score: 3 Depression Screening Interpretation: Negative Depression Screening Done: Yes 40425 - PHQ-9 Billing: Yes Source: Developed by Drs. Bari Haas, Kim Matthew, Chance Santana and colleagues, with an educational bhargavi from [facility].. Thrive Questionnaire Date Thrive assessed: 03/21/25 I am a: Patient What is your living situation today?: I have a steady place to live Within the past 12 months, did the food you bought not last and you didn't have the money to get more?: Never true Within the past 12 months, did you worry whether your food would run out before you got money to buy more?: Never true Do you have trouble paying for medicines?: No Do you have trouble getting transportation to medical appointments?: No Do you have trouble paying your heating and electricity bill?: No Do you have trouble taking care of your child, family member or friend?: No Do you have trouble with day-to-day activities such as bathing, preparing meals, shopping, managing finances, etc.?: No Are you currently unemployed and looking for a job?: No Are you interested in more education?: No Please select the resources that you would like help with: None Currently or been in a relationship where the following occur: No concerns reported THRIVE Score: 0 AUDIT C Alcohol Use Questionnaire (AUDIT-C) 1. How often do you have a drink containing alcohol?: Monthly or less 2. How many drinks containing alcohol do you have on a typical day when you are drinking?: 1 or 2 3. How often do you have six or more drinks on one occasion?: Never Total Score: 1 MAVIS-7 AMB Questionnaire MAVIS-7 Date MAVIS - 7 assessed: 03/21/25 Feeling nervous, anxious, or on edge: 0 = Not at all Not being able to stop or control worryin = Not at all Worrying too much about different things: 0 = Not at all Trouble relaxin = Not at all Being so restless that it is hard to sit still: 0 = Not at all Becoming easily annoyed or irritable: 0 = Not at all Feeling afraid as if something awful might happen: 0 = Not at all Total MAVIS-7 score (0-4 normal; 5-9 mild; 10-14 moderate; 15-21 severe): 0 Source: Developed by Drs. Bari Haas, Kim Matthew, Chance Santana and colleagues, with an educational bhargavi from [facility].. MAVIS-7 Assessment Billing MAVIS-7 Assessment Tool: MAVIS-7 Assessment 33030 Review of Systems Const Denies headache(s) Eyes Denies loss of vision ENT Denies vertigo, Denies dizziness, Denies headache(s) and Denies sore throat Card Denies chest pain, Denies leg edema and Denies lightheadedness Resp Denies cough, Denies hemoptysis and Denies wheezing GI Denies abdominal pain, Denies melena, Denies constipation, Denies diarrhea and Denies vomiting Denies dysuria, Denies urinary frequency and Denies urinary urgency Musc Reports arthralgias (both knee and ankle), Denies joint swelling, Reports numbness (finger (pointers, middle and thumb) on both hands) and Denies tingling Neuro Denies Abnormal speech present, Denies behavioral changes, Denies vertigo, Denies dizziness, Denies headache(s), Denies loss of vision, Denies memory loss, Reports numbness (finger (pointers, middle and thumb) on both hands) and Denies tingling Psych Denies anxiety, Denies behavioral changes, Denies depression, Denies memory loss and Denies panic attacks Kirill/Lymph Denies easy bleeding and Denies easy bruising Aller/Immun Denies wheezing Physical exam (Primary Care) Vital Signs: Last Vital Signs Temp 97.1 F 03/21/25 13:26 Pulse 80 03/21/25 13:26 Resp 18 03/21/25 13:26 BP 90/54 L 03/21/25 13:26 Pulse Ox 95 03/21/25 13:26 Oxygen Delivery Method Room Air 03/21/25 13:26 BMI result Body Mass Index 24.3 Tobacco/Smoking Status: Tobacco use Status Tobacco use date assessed 03/21/25 03/21/25 13:35 Patient Tobacco Use Status Never used Tobacco 03/21/25 13:35 e-Cigarette/Vaping Use Never Used 03/21/25 13:35 PHQ-9: PHQ-9 Score PHQ-9: Total score 3 03/21/25 13:43 Depression Screening Interpretation: Negative Thrive Assessment: Date of Thrive Assessment Date Thrive assessed 03/21/25 03/21/25 13:35 Currently or been in a relationship where the following occur: No concerns reported Const General: healthy appearing, no acute distress, alert and awake Nutritional Appearance: well nourished Orientation/consciousness: oriented to person, oriented to place and oriented to time HENMT Ears: TM's normal bilaterally General nose exam: Normal nasal mucous membranes and turbinates present Eyes Conjunctivae: conjunctivae normal Sclerae: sclerae normal Pupils: Equal, round and reactive pupils present Neck Neck: Yes no lymphadenopathy and Yes no JVD Thyroid: Thyroid normal Carotids: no bruits Resp Effort & Inspection: normal respiratory effort and not tachypneic Auscultation: no crackles, no rales, no rhonchi and no wheezes Cardio Rate: regular rate Rhythm: regular rhythm Heart sounds: no murmurs and normal S1 and S2 GI Palpation (GI): Soft to palpation, nontender, no hepatomegaly and no splenomegaly Auscultation: normal bowel sounds Skin General skin exam: no rashes or lesions noted and dry skin Neuro General: oriented to person, oriented to place and oriented to time Cranial nerves: Yes Equal, round and reactive pupils present Speech: No Abnormal speech present Gait exam (Neuro): Normal gait present Motor exam (neuro): no tremor noted Extrem Right upper extremity: full ROM Left upper extremity: full ROM Right lower extremity: full ROM, knee Details: no tenderness and no swelling and ankle Details: no tenderness and no swelling; no edema Left lower extremity: full ROM, knee Details: no tenderness and no swelling and ankle Details: no tenderness and no swelling; no edema Psych Mental Status: mental status grossly normal Speech and movement: Normal speech and movement present Affect: normal affect Attitude: cooperative Thought process: Normal thought process present Coding Level of Care Code Est Pt Level 4 (13182) Diagnoses Hypertension, unspecified type I10 Hypertension type: unspecified Hypercholesteremia E78.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 Z79.4 Elevated liver enzymes R74.8 Non-alcoholic fatty liver disease K76.0 Stage 3a chronic kidney disease N18.31 Chronic kidney disease stage 3 subtype: stage 3a (GFR 45-59) Personal history of malignant melanoma of skin Z85.820 Chronic gout without tophus, unspecified cause, unspecified site [id number] Gout site: unspecified site Gout etiology: unspecified cause Chronicity: chronic Presence of tophus: without tophus Type 2 diabetes mellitus with diabetic nephropathy, with long-term current use of insulin E11.21; Z79.4 Diabetes mellitus senior living insulin use: with senior living use Additional Codes PHQ-9 - 26655 - PHQ-9 Billing: Yes ([id number]) MAVIS-7 Assessment Billing - MAVIS-7 Assessment Tool: MAVIS-7 Assessment 76355 ([id number]) Time Spent (min) 43 Assessment & Plan Assessment & Plan (1) HTN (hypertension): Code(s): I10 - Essential (primary) hypertension Category: Medical Qualifiers: Hypertension type: unspecified Qualified Code(s): I10 - Essential (primary) hypertension Plan: Blood pressure was 90/54 in office. Lisinopril 40 mg b.i.d. was decreased to 20 mg b.i.d.. (2) Hypercholesteremia: Code(s): E78.00 - Pure hypercholesterolemia, unspecified Category: Medical Plan: No recent blood work. Last labs were in 2022. Continue rosuvastatin 5 mg daily. 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 (4) Elevated liver enzymes: Code(s): R74.8 - Abnormal levels of other serum enzymes Category: Medical Plan: History of fatty liver. Avoid alcohol or medication containing Tylenol CMP ordered to further evaluate (5) Non-alcoholic fatty liver disease: Code(s): K76.0 - Fatty (change of) liver, not elsewhere classified Category: Medical Plan: Avoid alcohol, medications containing Tylenol, and fatty foods (6) CKD (chronic kidney disease) stage 3, GFR 30-59 ml/min: Code(s): N18.30 - Chronic kidney disease, stage 3 unspecified Category: Medical Qualifiers: Chronic kidney disease stage 3 subtype: stage 3a (GFR 45-59) Qualified Code(s): N18.31 - Chronic kidney disease, stage 3a Plan: Encouraged adequate hydration. Avoid NSAIDs (7) Personal history of malignant melanoma of skin: Code(s): Z85.820 - Personal history of malignant melanoma of skin Category: Medical Plan: History. No reoccurrence. We will continue to monitor (8) Gout: Code(s): M10.9 - Gout, unspecified Category: Medical Qualifiers: Gout site: unspecified site Gout etiology: unspecified cause Chronicity: chronic Presence of tophus: without tophus Qualified Code(s): M1A.9XX0 - Chronic gout, unspecified, without tophus (tophi) Plan: No flare-up in a while. 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 Reports that his latest A1c was 6.3%. Encouraged low sugar/carbohydrate diet Continue Trulicity 1.5 mg q.week, Lantus 20 units at bedtime Continue gabapentin 400 mg t.i.d. Plan The plan includes monitoring the patient's blood pressure closely due to recent low readings, with a reduction in lisinopril dosage to 20 mg twice daily. The patient is advised to continue regular blood pressure checks at home and report any significant changes. For diabetes management, the patient will continue on Lantus, with follow-up blood work scheduled in three months to monitor A1c levels. The patient is encouraged to maintain his current lifestyle changes, including regular exercise and dietary modifications to manage cholesterol levels. The patient is advised to avoid NSAIDs like indomethacin due to potential adverse effects on kidney function. For gout management, the patient will confirm the correct dosage of colchicine with his and continue allopurinol as prescribed. The patient is scheduled for follow-up blood work in three months to assess kidney function and liver enzyme levels. He is also advised to avoid foods high in cholesterol and saturated fats to manage fatty liver disease. Patient was informed and verbally consented to the use of an ambient scribe for clinic note documentation during this visit. Orders: Orders Complete Blood Count Auto Diff 3 Months I10 - Essential (primary) hypertension, E78.00 - Pure hypercholesterolemia, unspecified, E11.65 - Type 2 diabetes mellitus with hyperglycemia, Z79.4 - outside sales advertising executive (current) use of insulin, R74.8 - Abnormal levels of other serum enzymes, K76.0 - Fatty (change of) liver, not elsewhere classified, N18.30 - Chronic kidney disease, stage 3 unspecified, M10.9 - Gout, unspecified, E11.21 - Type 2 diabetes mellitus with diabetic nephropathy Comprehensive Badger. Panel Fast 3 Months I10 - Essential (primary) hypertension, E78.00 - Pure hypercholesterolemia, unspecified, E11.65 - Type 2 diabetes mellitus with hyperglycemia, Z79.4 - outside sales advertising executive (current) use of insulin, R74.8 - Abnormal levels of other serum enzymes, K76.0 - Fatty (change of) liver, not elsewhere classified, N18.30 - Chronic kidney disease, stage 3 unspecified, M10.9 - Gout, unspecified, E11.21 - Type 2 diabetes mellitus with diabetic nephropathy PSA,Total (Free>4and<10) 3 Months I10 - Essential (primary) hypertension, E78.00 - Pure hypercholesterolemia, unspecified, E11.65 - Type 2 diabetes mellitus with hyperglycemia, Z79.4 - alf (current) use of insulin, R74.8 - Abnormal levels of other serum enzymes, K76.0 - Fatty (change of) liver, not elsewhere classified, N18.30 - Chronic kidney disease, stage 3 unspecified, M10.9 - Gout, unspecified, E11.21 - Type 2 diabetes mellitus with diabetic nephropathy UA CC w/rflx Micro + Cult 3 Months I10 - Essential (primary) hypertension, E78.00 - Pure hypercholesterolemia, unspecified, E11.65 - Type 2 diabetes mellitus with hyperglycemia, Z79.4 - alf (current) use of insulin, R74.8 - Abnormal levels of other serum enzymes, K76.0 - Fatty (change of) liver, not elsewhere classified, N18.30 - Chronic kidney disease, stage 3 unspecified, M10.9 - Gout, unspecified, E11.21 - Type 2 diabetes mellitus with diabetic nephropathy Hemoglobin A1c 3 Months I10 - Essential (primary) hypertension, E78.00 - Pure hypercholesterolemia, unspecified, E11.65 - Type 2 diabetes mellitus with hyperglycemia, Z79.4 - outside sales advertising executive (current) use of insulin, E11.21 - Type 2 diabetes mellitus with diabetic nephropathy, K76.0 - Fatty (change of) liver, not elsewhere classified, R74.8 - Abnormal levels of other serum enzymes, N18.30 - Chronic kidney disease, stage 3 unspecified, M10.9 - Gout, unspecified Uric Acid 3 Months I10 - Essential (primary) hypertension, E78.00 - Pure hypercholesterolemia, unspecified, E11.65 - Type 2 diabetes mellitus with hyperglycemia, Z79.4 - alf (current) use of insulin, E11.21 - Type 2 diabetes mellitus with diabetic nephropathy, K76.0 - Fatty (change of) liver, not elsewhere classified, R74.8 - Abnormal levels of other serum enzymes, N18.30 - Chronic kidney disease, stage 3 unspecified, M10.9 - Gout, unspecified Lipid Panel 3 Months I10 - Essential (primary) hypertension, E78.00 - Pure hypercholesterolemia, unspecified, E11.65 - Type 2 diabetes mellitus with hyperglycemia, Z79.4 - alf (current) use of insulin, E11.21 - Type 2 diabetes mellitus with diabetic nephropathy, K76.0 - Fatty (change of) liver, not elsewhere classified, R74.8 - Abnormal levels of other serum enzymes, N18.30 - Chronic kidney disease, stage 3 unspecified, M10.9 - Gout, unspecified Lipid Panel 03/21/25 I10 - Essential (primary) hypertension, E78.00 - Pure hypercholesterolemia, unspecified, E11.65 - Type 2 diabetes mellitus with hyperglycemia, Z79.4 - outside sales advertising executive (current) use of insulin, E11.21 - Type 2 diabetes mellitus with diabetic nephropathy, E11.42 - Type 2 diabetes mellitus with diabetic polyneuropathy, E11.40 - Type 2 diabetes mellitus with diabetic neuropathy, unspecified, K76.0 - Fatty (change of) liver, not elsewhere classified, N18.30 - Chronic kidney disease, stage 3 unspecified, M10.9 - Gout, unspecified, R74.8 - Abnormal levels of other serum enzymes UA CC w/rflx Micro + Cult 03/21/25 I10 - Essential (primary) hypertension, E78.00 - Pure hypercholesterolemia, unspecified, E11.65 - Type 2 diabetes mellitus with hyperglycemia, Z79.4 - alf (current) use of insulin, E11.21 - Type 2 diabetes mellitus with diabetic nephropathy, E11.42 - Type 2 diabetes mellitus with diabetic polyneuropathy, E11.40 - Type 2 diabetes mellitus with diabetic neuropathy, unspecified, K76.0 - Fatty (change of) liver, not elsewhere classified, N18.30 - Chronic kidney disease, stage 3 unspecified, M10.9 - Gout, unspecified, R74.8 - Abnormal levels of other serum enzymes Comprehensive Badger. Panel Fast 03/21/25 I10 - Essential (primary) hypertension, E78.00 - Pure hypercholesterolemia, unspecified, E11.65 - Type 2 diabetes mellitus with hyperglycemia, Z79.4 - outside sales advertising executive (current) use of insulin, E11.21 - Type 2 diabetes mellitus with diabetic nephropathy, E11.42 - Type 2 diabetes mellitus with diabetic polyneuropathy, E11.40 - Type 2 diabetes mellitus with diabetic neuropathy, unspecified, K76.0 - Fatty (change of) liver, not elsewhere classified, N18.30 - Chronic kidney disease, stage 3 unspecified, M10.9 - Gout, unspecified, R74.8 - Abnormal levels of other serum enzymes Uric Acid 03/21/25 I10 - Essential (primary) hypertension, E78.00 - Pure hypercholesterolemia, unspecified, E11.65 - Type 2 diabetes mellitus with hyperglycemia, Z79.4 - outside sales advertising executive (current) use of insulin, E11.21 - Type 2 diabetes mellitus with diabetic nephropathy, R74.8 - Abnormal levels of other serum enzymes, K76.0 - Fatty (change of) liver, not elsewhere classified, N18.30 - Chronic kidney disease, stage 3 unspecified, M10.9 - Gout, unspecified Vitamin D 25-OH Total 3 Months I10 - Essential (primary) hypertension, E78.00 - Pure hypercholesterolemia, unspecified, E11.65 - Type 2 diabetes mellitus with hyperglycemia, Z79.4 - outside sales advertising executive (current) use of insulin, R74.8 - Abnormal levels of other serum enzymes, K76.0 - Fatty (change of) liver, not elsewhere classified, N18.30 - Chronic kidney disease, stage 3 unspecified, M10.9 - Gout, unspecified, E11.21 - Type 2 diabetes mellitus with diabetic nephropathy TSH reflex Free T4 3 Months I10 - Essential (primary) hypertension, E78.00 - Pure hypercholesterolemia, unspecified, E11.65 - Type 2 diabetes mellitus with hyperglycemia, Z79.4 - outside sales advertising executive (current) use of insulin, R74.8 - Abnormal levels of other serum enzymes, K76.0 - Fatty (change of) liver, not elsewhere classified, N18.30 - Chronic kidney disease, stage 3 unspecified, M10.9 - Gout, unspecified, E11.21 - Type 2 diabetes mellitus with diabetic nephropathy Vitamin B12 and Folate 3 Months I10 - Essential (primary) hypertension, E78.00 - Pure hypercholesterolemia, unspecified, E11.65 - Type 2 diabetes mellitus with hyperglycemia, Z79.4 - outside sales advertising executive (current) use of insulin, E11.21 - Type 2 diabetes mellitus with diabetic nephropathy, K76.0 - Fatty (change of) liver, not elsewhere classified, R74.8 - Abnormal levels of other serum enzymes, N18.30 - Chronic kidney disease, stage 3 unspecified, M10.9 - Gout, unspecified TSH reflex Free T4 03/21/25 I10 - Essential (primary) hypertension, E78.00 - Pure hypercholesterolemia, unspecified, E11.65 - Type 2 diabetes mellitus with hyperglycemia, Z79.4 - alf (current) use of insulin, E11.21 - Type 2 diabetes mellitus with diabetic nephropathy, E11.42 - Type 2 diabetes mellitus with diabetic polyneuropathy, E11.40 - Type 2 diabetes mellitus with diabetic neuropathy, unspecified, K76.0 - Fatty (change of) liver, not elsewhere classified, N18.30 - Chronic kidney disease, stage 3 unspecified, M10.9 - Gout, unspecified, R74.8 - Abnormal levels of other serum enzymes Vitamin D 25-OH Total 03/21/25 I10 - Essential (primary) hypertension, E78.00 - Pure hypercholesterolemia, unspecified, E11.65 - Type 2 diabetes mellitus with hyperglycemia, Z79.4 - outside sales advertising executive (current) use of insulin, E11.21 - Type 2 diabetes mellitus with diabetic nephropathy, E11.42 - Type 2 diabetes mellitus with diabetic polyneuropathy, E11.40 - Type 2 diabetes mellitus with diabetic neuropathy, unspecified, K76.0 - Fatty (change of) liver, not elsewhere classified, N18.30 - Chronic kidney disease, stage 3 unspecified, M10.9 - Gout, unspecified, R74.8 - Abnormal levels of other serum enzymes Medications: New lisinopril 20 mg PO BID 90 tabs 3RF Discontinued lisinopril Discontinued Reason: Duplicate 40 mg PO BID 180 tabs 1RF Patient Instructions: Complete blood work. Follow up in 3 months
--- OUTSIDE RECORDS SUMMARY | 2025-03-21 14:15 | XMS_ITS | Clinical Summary ---
Author Organization [facility] Address [address] [address] Phone Care Team Providers Care [employer] [facility] Associate Name Role Phone Emilio Corral MANAGER TRAVEL Primary Care Provider Allergies No known active allergies Medications cholecalciferol (VITAMIN D3) 25 MCG (1,000 unit) tabletIndications :unsure strength Take by mouth daily. Indications: unsure strength Active ascorbic acid (VITAMIN C ORAL) Take 1,000 mg by mouth. Active ALPHA LIPOIC ACID ORAL Take 600 mg by mouth. Active insulin pen needles, disposable, (BD BETH 2ND GEN PEN NEEDLE) 32 gauge x 5/32 Ndle BD Beth 2nd Gen Pen Needle 32 gauge x 5/32 USE ONCE DAILY DIRECTED Active Medication-Free Text Laurie Apple Cider Vinegar Active ONETOUCH UKTRA2 meter kit Use as instructed 1 kit Active blood sugar diagnostic Strp strips 1 each by Miscellaneous route as needed. USE FOUR TIMES DAILY 100 strip 3 024 Active ONETOUCH ULTRA TEST Strp stripsIndications :Type 2 diabetes mellitus with microalbuminuria, without long-term current use of insulin 1 each by Miscellaneous route 4 (four) times a day. 400 strip 3 024 Active ONETOUCH ULTRA TEST Strp strips 1 each by Miscellaneous route 2 (two) times a day. 200 strip 3 024 Active empagliflozin (JARDIANCE) 25 mg tabletIndications :Type 2 diabetes mellitus with diabetic polyneuropathy, without long-term current use of insulin Take 1 tablet (25 mg total) by mouth daily. 90 tablet 1 025 Active LANTUS SOLOSTAR U-100 INSULIN 100 unit/mL (3 mL) InPn injection penIndications:Ty pe 2 diabetes mellitus with diabetic polyneuropathy, without long-term current use of insulin Inject 25 Units under the skin nightly at bedtime. 30 mL 1 025 Active lisinopril (PRINIVIL,ZESTRIL ) 40 MG tabletIndications :Essential hypertension Take 1 tablet (40 mg total) by mouth daily. 90 tablet 1 025 Active colchicine (COLCRYS) 0.6 mg tabletIndications :Chronic tophaceous gout Take 1 tablet (0.6 mg total) by mouth every other day. TOGETHER WITH ALLOPURINOL 45 tablet 1 025 Active allopurinol (ZYLOPRIM) 100 MG tabletIndications :Chronic tophaceous gout Take 1 tablet (100 mg total) by mouth daily. Together with ONE 300 mg tab for total daily dose 400 mg 90 tablet 3 025 Active DULoxetine (CYMBALTA) 60 MG capsuleIndication s:Neuropathy,Poly articular osteoarthritis TAKE 1 CAPSULE(60 MG) BY MOUTH DAILY 90 capsule 1 025 Active semaglutide (OZEMPIC) 1 mg/dose (4 mg/3 mL) subcutaneous injection penIndications:Ty pe 2 diabetes mellitus with diabetic polyneuropathy, without long-term current use of insulin INJECT 1 MG UNDER THE SKIN EVERY 7 DAYS 9 mL 025 Active allopurinol (ZYLOPRIM) 300 MG tabletIndications :Chronic tophaceous gout TAKE 1 TABLET(300 MG) BY MOUTH DAILY. TOGETHER WITH 100 MG TABLET DIRECTED 90 tablet 1 025 Active rosuvastatin (CRESTOR) 5 MG tabletIndications :Hyperlipidemia LDL goal <100 TAKE 1 TABLET BY MOUTH DAILY 90 tablet 1 025 Active gabapentin (NEURONTIN) 400 MG capsuleIndication s:Neuropathy TAKE 1 CAPSULE(400 MG) BY MOUTH THREE TIMES DAILY 270 capsule 1 025 Active allopurinol (ZYLOPRIM) 300 MG tabletIndications :Chronic tophaceous gout Take 1 tablet (300 mg total) by mouth daily. Together with 100 mg tabs as directed 90 tablet 3 024 2024 Discontinued rosuvastatin (CRESTOR) 5 MG tabletIndications :Hyperlipidemia LDL goal <100 Take 1 tablet (5 mg total) by mouth daily. 90 tablet 1 025 2024 Discontinued semaglutide (OZEMPIC) 1 mg/dose (4 mg/3 mL) subcutaneous injection penIndications:Ty pe 2 diabetes mellitus with diabetic polyneuropathy, without long-term current use of insulin Inject 1 mg under the skin every 7 days. 9 mL 1 025 2024 Discontinued gabapentin (NEURONTIN) 400 MG capsuleIndication s:Neuropathy TAKE 1 CAPSULE(400 MG) BY MOUTH THREE TIMES DAILY 270 capsule 1 025 2024 Discontinued Active Problems Problem Noted Date Diagnosed Date Essential hypertension 05/29/2023 Assessment & Plan (09/05/2024 4:14 PM EST): Controlled continue lisinopril check urine microalbumin Assessment & Plan (12/03/2023 3:23 PM EDT): Blood pressure on the lower side of normal. Not typical for him we will continue lisinopril 40 mg. No changes. Assessment & Plan (09/03/2023 3:41 PM EST): Controlled. Continue lisinopril. Assessment & Plan (05/29/2023 11:31 AM EDT): Controlled. Continue lisinopril. Unfortunately urine microalbumin creatinine ratio remain elevated. Only can do is trying to maintain good glycemic control. He is also on Jardiance which has renal protection. Polyarticular osteoarthritis 03/27/2023 Overview (06/22/2024): PIPs bl, left knee; right wrist secondary to remote trauma Assessment & Plan (06/22/2024 5:03 PM EDT): Left knee pain improved since 01/2024 intra-articular steroid injection Assessment & Plan (02/16/2024 5:07 PM EDT): Intra-articular steroid injection to left knee today as detailed in procedure note; can repeat on right side on f/u pending clinical response. Oral NSAIDs remain relatively contraindicated in context of CKD; reasonable to continue duloxetine and gabapentin patrick given co-morbid peripheral neuropathy. Assessment & Plan (03/27/2023 2:45 PM EDT): Trial increase duloxetine dose from 30 to 60 mg daily; tx options limited by CKD3. Co-morbid peripheral neuropathy is almost certainly an additional component of non-inflammatory pain. Type 2 diabetes mellitus wit h diabetic polyneuropathy, without long-term current use of insulin 02/13/2023 Assessment & Plan (09/05/2024 4:15 PM EST): Fair control. Improvement in A1c down to 7.2%. Will increase Lantus to 25 units to improve fasting glucose levels. But he is having postprandial hyperglycemia he is already at the maximum dose of Jardiance and he is on 1 mg of Ozempic I am sort of reluctant to increasing Ozempic to 2 mg because of increased weight loss so I asked him to decrease the carbohydrate intake he is eating a lot of bread and if he were to change his diet slightly maybe this will improve. If it does not work out then maybe will consider increasing Ozempic to 2 mg. Since he is doing relatively well I will give him a follow-up appointment in 6 months. Assessment & Plan (03/03/2024 2:34 PM EDT): Uncontrolled. Hemoglobin A1c 7.8% but he is not using Trulicity or Ozempic. The Jardiance was increased to 25 mg which him show helped but despite this the A1c increased. I asked him not to make any changes continue Jardiance and Lantus. He is getting new insurance so I asked him to try to get the Ozempic. He should repeat hemoglobin A1c prior to the follow-up visit in 3 months. Assessment & Plan (12/03/2023 3:19 PM EDT): Uncontrolled. Hemoglobin A1c did not change and remains the same at 7.6%. Will increase the Jardiance from 10 to 25 mg he will continue Trulicity 3.0 mg weekly. Also continue Lantus 20 units. His meter shows that 89% of the glucose are in range. But this is not totally correct. He is having fasting glucose above 120 mg. If he does not have improvement we can consider increasing Lantus or Trulicity on the follow-up visit. Assessment & Plan (09/03/2023 3:54 PM EST): Uncontrolled. Hemoglobin A1c 7.6 has been getting progressively worse. Before he had an excuse could not get the Trulicity but he states has been getting Trulicity. He is also on Jardiance and Lantus. He states he has been eating the wrong foods. Will give him another chance to work on his diet and if he is not able to do this we will have to increase his medications. He will follow in 3 months. Assessment & Plan (05/29/2023 11:27 AM EDT): Uncontrolled. Hemoglobin A1c 7.2% he is having dietary indiscretion. He used to be on Trulicity 3 mg but this was stopped because of availability and lack of medications. I will prescribe Trulicity 3.0 mg continue Lantus 20 and Jardiance 10 mg. Hopefully he will lose weight and have improvement in transaminases Assessment & Plan (02/13/2023 9:08 AM EDT): Controlled. Hemoglobin A1c 6.8% he should continue current regimen Lantus 20 units, Jardiance 10 mg and Trulicity 1.5 mg based on today's results he does not need to 3.0 mg of Trulicity weekly. He should repeat lab work prior to the follow-up visit requesting a CBC to check hemoglobin hematocrit to ensure that this is in the reference range. Also repeating comprehensive and obtain urine microalbumin creatinine ratio. And of course hemoglobin A1c prior to the follow-up visit in 3 months. Type 2 diabetes mellitus wit h microalbuminuria, without long-term current use of insulin 02/13/2023 Assessment & Plan (03/06/2025 2:36 PM EDT): Fasting glucose good. Hemoglobin A1c 6.3% so I have to say he is controlled. The patient informs me that he is lifting around 4:00 and this usually increases cortisol levels which can increase glucose levels. If he were to check some time afterwards I think that his numbers will be better. I suggested that instead of checking his glucose before eating maybe he can check it 2 hours after he eats to see if the glucose levels are coming down. Hyperlipidemia LDL goal <100 02/13/2023 Assessment & Plan (03/06/2025 2:27 PM EDT): New guidelines recommend for diabetic patients LDL less than 70. He is on rosuvastatin 5 mg and his last LDL was 87 mg which was fine before but no longer the case. He is going to come back in 3 months this time around because he has to repeat the lab work and then we will see at that point where his LDL level stands. He told me that he is lost weight so who knows if lipid panel will change as well. But if he is not below 70 then we will have to adjust his rosuvastatin. Assessment & Plan (09/05/2024 4:15 PM EST): Controlled LDL 87 mg continue rosuvastatin repeat lipid panel Assessment & Plan (03/03/2024 2:35 PM EDT): Controlled. LDL 87 mg/dL continue rosuvastatin 5 mg. Assessment & Plan (12/03/2023 3:19 PM EDT): Controlled. LDL 87 mg/dL HDL 64 mg continue rosuvastatin 5 mg. Assessment & Plan (09/03/2023 3:40 PM EST): Uncontrolled. LDL was elevated he is not on a statin because of increased transaminases but the transaminases are not very high. I will prescribe rosuvastatin 5 mg and repeat lipid panel prior to the follow-up visit. Assessment & Plan (05/29/2023 11:26 AM EDT): Controlled. LDL 138 mg/dL but all these medications at lower the LDL associated with elevated transaminases. His helper shear operator has stopped all statins and ezetimibe and Praluent can also cause elevated transaminases so not certain what to do hopefully he can lose weight then transaminases were improved. Assessment & Plan (02/13/2023 8:57 AM EDT): I have a lipid panel we will request this study. He is currently not on a statin he is using alpha lipoic acid. He suspects that he may have been taking this. He states that he may have been taking it in the past but affected his liver. However transaminases are within the reference range. He does have low total protein and low albumin unclear if this is due to his diet because he mostly eats salads and fruits. Skin lesion of face 07/12/2021 Overview (07/12/2021): Irregular shaped, dark colored lesion right cheek. Pt states it has been present at least a year and has been getting larger. I will refer to dermatolgy Assessment & Plan (02/28/2022 9:52 AM EDT): Dx'd with melanoma 12/13 underwent wide excsion Advised pt to avoid sun wear sunscreen and sun protective clothing Assessment & Plan (07/12/2021 5:07 PM EST): rregular shaped, dark colored lesion right cheek. Pt states it has been present at least a year and has been getting larger. Concerning for cancerous lesion. I will refer to dermatolgy Lateral epicondylitis of right elbow 04/03/2020 Assessment & Plan (02/28/2022 9:52 AM EDT): Resolved s/p injection 06/2021 Assessment & Plan (07/12/2021 5:11 PM EST): Exam consistent with right lateral epicondylitis. Injection today Please see procedure note Forearm Strap and OT prn Assessment & Plan (02/08/2021 4:12 PM EDT): Continue Cymbalta 30 mg Once daily. Assessment & Plan (10/12/2020 4:04 PM EST): Continue Cymbalta 30 mg once daily for elbow pain relief. Calcaneal spur of right foot 04/03/2020 Assessment & Plan (02/08/2021 4:10 PM EDT): Continue Dr. Plascencia's heel cups. Patient will avoid walking barefooted on hard surfaces. Assessment & Plan (10/12/2020 4:04 PM EST): Continue Dr. Plascencia's heel cups. Patient will avoid walking on hard surfaces barefooted. Patellar tendinitis of right knee 02/14/2020 Assessment & Plan (02/08/2021 4:08 PM EDT): Stable. Continue Cymbalta 30 mg once daily. Assessment & Plan (10/12/2020 4:02 PM EST): Continue Cymbalta 30 mg once daily for knee pain relief. Neuropathy 02/14/2020 Overview (06/22/2024): Diabetic neuropathy, progressive hand sxs Assessment & Plan (06/22/2024 5:04 PM EDT): Tolerating current gabapentin dose 400 mg tid; renal function adequate for this dose Assessment & Plan (02/08/2021 4:09 PM EDT): Continue Gabapentin 400 mg TID for Neuropathy symptom control. Assessment & Plan (10/12/2020 4:03 PM EST): Patient will continue Gabapentin 400 mg TID for Neuropathy symptom control. Medication working well at controlling symptoms. 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 Previously discussed surgical evaluation for possible olecranon tophectomies but patient has decided against pursuing this option. Assessment & Plan (02/16/2024 5:05 PM EDT): Remains well-controlled on current allopurinol dose with most recent serum uric acid at goal (3.9 as of 05/2023); repeat serum uric acid with next routine labs. Will adjust allopurinol dose if needed to maintain serum uric acid <5.0 mg/dL. I have sent message to Dr. Onofre re: possible referral to discuss bl olecranon bursa tophectomies. Assessment & Plan (03/27/2023 2:47 PM EDT): Well controlled on current allopurinol dose 300 mg daily; most recent serum uric acid stable and at goal of <5.0 mg/dL (4.3 as of 08/2022). Repeat serum uric acid with next routine labs. Assessment & Plan (02/28/2022 9:47 AM EDT): Long hx of tophaceous gout most likely due to CKD treated with allopurinol 300 mg daily. No gout flares for long time and most recent uric acid 4.4. Continue current dose allopurinol Over time tophi will slowly re-absorb. Assessment & Plan (07/12/2021 5:05 PM EST): Long hx of tophaceous gout most likely due to CKD treated with allopurinol 300 mg daily. No gout flares for long time and most recent uric acid 4.4. Continue current dose allopurinol Over time tophi will slowly reabsorb. LFTs normal, cr 2.0 (increased from previous) Pt advised to f/u with underwater hunter Assessment & Plan (02/08/2021 4:08 PM EDT): Continue Allopurinol 300 mg Take one pill PO daily. Patient has Indocin he can take for Gout flares as needed. Assessment & Plan (10/12/2020 4:01 PM EST): Continue Allopurinol 300 mg once daily. Continue Indocin if flare up of Gout until symptoms resolve. Chronic kidney disease (CKD), stage III (moderat e) 12/30/2019 Assessment & Plan (02/28/2022 9:51 AM EDT): Cr increased to 2.0 Will repeat today Encouraged pt to maintain f/u with underwater hunter for CKD Heel spur, unspecified laterality 12/30/2019 Encounters Date Type Department Care Team Description 03/20/2025 Refill [facility] Rheumatology [address] [place] [address] [place] [address] Anali Moran MD, MPH Medication Refill 03/20/2025 Refill [facility] [address] [place] [address] [place] [address] Leonid Atkinson DO Medication Refill 03/16/2025 Refill [facility] Rheumatology [address] [place] [address] [place] [address] Anali Moran MD, MPH Medication Refill 03/06/2025 2:00 PM EDT Office Visit [facility] [address] [place] [address] [place] [address] Leonid Atkinson DO Hyperlipidemia LDL goal <100 (Primary Dx); Type 2 diabetes mellitus with diabetic polyneuropathy, without long-term current use of insulin; Essential hypertension; Type 2 diabetes mellitus with microalbuminuria, without long-term current use of insulin 02/26/2025 Refill [facility] [address] [place] [address] [place] [address] Leonid Atkinson DO Medication Refill 02/06/2025 Telephone [facility] [address] [place] [address] Lisa Wheeler MA 02/03/2025 Telephone [facility] [address] [place] [address] Lisa Wheeler MA 01/01/2025 Refill [facility] [place] [address] Anali Moran MD, MPH Medication Refill from Last 3 Months Family History Medical History Relation Comments Diabetes Father Prostate cancer Father Diabetes Mother Stroke Mother Relation Status Comments Father Mother Alive Social History Tobacco Use Types Packs/Day Years Used Date Smoking Tobacco: Never Smokeless Tobacco: Never Tobacco Cessation:Counseling Given: Not Answered Alcohol Use Standard Drinks/Week Comments Never 0 (1 standard drink = 0.6 oz pur e alcohol) Education Answer Date Recorded Are you interested in more education? Not on keri e 12/19/2022 Are you concerned about learning? Not on file 12/19/2022 No 12/19/2022 No 12/19/2022 Digital Access Answer Date Recorded No 01/16/2023 No 01/16/2023 Reliable internet access at home? Not on file 01/16/2023 Device with a working camera? Not on file Sex and Gender Information Value Date Recorded Sex Assigned at Not on file Legal Sex Male 8:26 AM EDT Gender Identity Not on file Sexual Orientation Not on file Last Filed Vital Signs Vital Sign Reading Time Taken Comments Blood Pressure 110/55 03/06/2025 1:51 PM EDT Pulse 60 03/06/2025 1:51 PM EDT Temperature 36.2 C (97.1 F) 12/03/2023 3:00 PM EDT Respiratory Rate 16 03/26/2023 4:09 PM EDT Oxygen Saturation 98% 09/05/2024 3:55 PM EST Inhaled Oxygen Concentration - - Weight 94.3 kg (208 lb) 03/06/2025 1:51 PM EDT Height 187.4 cm (6' 1.78 ) 09/05/2024 3:55 PM ES T Body Mass Index 26.87 09/05/2024 3:55 PM EST Plan of Treatment Upcoming Encounters Date Type Department Care Team (Late st Contact Info) Description 06/22/2025 3:20 PM EDT Office Visit [facility] [address] Leonid Atkinson, [address] [place] [id number] 06/22/2025 4:10 PM EDT Office Visit [facility] Rheumatology [address] [place] [address] Anali Moran MD, MPH [address] [facility], [address] [place] [address] [email or web address] Health Maintenance Due Date Last Done Comments Adult Td,Tdap Booster 1962 DEPRESSION SCREENING 1974 HEPATITIS C SCREENING 01/27/1980 HIV ONE-TIME SCREENING (18-65 YEARS) 01/27/1980 PNEUMOCOCCAL VACCINES (50+ years) (1 of 2 - PCV) 1981 COLOGUARD 2007 COLONOSCOPY 2007 COLORECTAL CANCER SCREENING 2007 FIT TEST 2007 FOBT 2007 SIGMOIDOSCOPY 2007 VIRTUAL COLONOSCOPY 2007 ZOSTER VACCINES (1 of 2) 01/27/2012 RSV VACCINE (1 - Risk 60-74 years 1-dose series) 2022 DIABETIC EYE EXAM 02/13/2023 COVID-19 VACCINE (2023- season) 2024 08/27/2021, 12/15/2020, 11/17/2020 CREATININE LEVEL 08/23/2025 08/23/2024, 01/2024, 05/27/2023, Additional history exists POTASSIUM LEVEL 08/23/2025 08/23/2024, 07/0 01/2024, 05/27/2023, Additional history exists BLOOD PRESSURE 09/06/2025 03/06/2025 HEMOGLOBIN A1C 09/06/2025 03/06/2025, 07/26, 02/27/2024, Additional history exists SMOKING STATUS SCREENING (Once After 26 Yrs) Completed 09/05/2024 HEPATITIS A VACCINES Aged Out No long er eligible based on patient's age to complete this topic HIB VACCINES Aged Out No longer eligi ble based on patient's age to complete this topic MENINGOCOCCAL VACCINES (ACWY) Aged Out No longer eligible based on patient's age to complete this topic MENINGOCOCCAL VACCINES (B) Aged Out N o longer eligible based on patient's age to complete this topic Medical Devices Not on file Procedures Procedure Name Priority Date/Time Associated Diagnosis Comments POCT HEMOGLOBIN A1C Routine 03/06/2025 2 :07 PM EDT Type 2 diabetes mellitus with diabetic polyneuropathy, without long-term current use of insulin COMPREHENSIVE METABOLIC PANEL Routine 08/23/2024 9:18 AM EST Chronic tophaceous gout from Last 3 Months or Most Recently Relevant to Health Maintenance Results * (ABNORMAL) POCT Hemoglobin A1c (03/06/2025 2:07 PM EDT) Hemoglobin A1c 6.3(A) 4.2 - 5.6 % Other 03/06/2025 2:07 PM EDT Leonid Atkinson DO POINT OF CARE TEST ORDERABLES Fi nal Result * (ABNORMAL) Comprehensive metabolic panel (08/23/2024 9:18 AM EST) SODIUM 138 133 - 146 mmol/L [facility] POTASSIUM 4.8 3.3 - 5.1 mmol/L [facility] CHLORIDE 101 96 - 108 mmol/L [facility] CO2 30 21 - 35 mmol/L [facility] BUN 26(H) 6 - 19 mg/dL [facility] CREATININE 1.60(H) 0.5 - 1.5 mg/dL [facility] GLUCOSE 177(H) 70 - 99 mg/dL [facility] ALBUMIN 3.7(L) 3.9 - 4.8 g/dL [facility] TOTAL PROTEIN 6.6 6.5 - 8.0 g/dL [facility] CALCIUM 9.2 8.4 - 10.3 mg/dL [facility] ALKALINE PHOSPHATASE 121(H) 39 - 117 U/L [facility] TOTAL BILIRUBIN 0.5 0.0 - 1.2 mg/dL [facility] AST 383(H) 0 - 37 U/L [facility] ALT 271(H) 0 - 40 U/L [facility] GLOBULIN 2.9 1 - 4.8 g/dL [facility] EGFR 48(L) >59 mL/min/1.7 3m2 [facility] Comment:Estimated glomerular filtration rate calculated using the CKD-EPI refit equation. ANION GAP 12 10 - 20 mmol/L [facility] Blood 08/23/2024 9:18 AM EST 08/23/2024 9:29 AM EST us Anali Moran MD, MPH LAB BLOOD ORDERABLES Fin al Result [address] [id number] from Last 3 Months or Most Recently Relevant to Health Maintenance Insurance [employer] Care Teams [employer] Associate Relationship Specialty Start Date End Date Emilio Corral NP [address] [place] [address] [address] [place] [address] PCP - General Nurse Practitioner 03/06/25 Additional Source Comments The information contained in this document represents components of the legal health record. It is not the complete legal health record.[facility]
--- OUTSIDE RECORDS SUMMARY | 2025-03-21 14:15 | XMS_ITS | Patient Health Record ---
Author Organization [facility] Address [address] [place] [address] Care Team Providers Care Social Organization Professor Name Role Phone Juan A Freeman MD Primary Care Provider Justino Grover Unavailable [phone] Allergies No Known Allergies Reason For Referral No Information Medications Medication SIG (Take, Route, Frequency, Duration) Notes Start Date End Date Status Gabapentin 400 MG 1 capsule Orally Onc e a day; Duration: 30 day(s) Active Jardiance 10 MG 1 tablet Orally Once a day; Duration: 30 day(s) Active Apple Cider Vinegar Active DULoxetine HCl 30 MG 1 capsule Orally On ce a day; Duration: 30 day(s) Active Lantus SoloStar 100 UNIT/ML as directed Subcutaneous Act mary Lisinopril 40 MG 1 tablet Orally Once a day; Duration: 30 day(s) Active Vitamin C Active Extra Depth Diabetic Shoes with 3 Pair Custom heat-molded multi-density innersoles for 1 year Dx: 01/16/2022 A ctive Allopurinol 300 MG 1 tablet Orally Once a day; Duration: 30 day(s) Active Doxycycline Hyclate 100 MG 1 capsule Orally Once a day; Duration: 10 day(s) Not-Bony ing Vitamin D3 Active Trulicity 1.5 MG/0.5ML as directed Subcutaneous Active Immunizations Vaccine Route Administration Date Status Comme nts Influenza Unknown 01/16/2022 Refused COVID-19 Moderna Vaccine Unknown 08/27/2021 Administered 1st 11/17/20 2nd 12/15/20 Social History Tobacco Use: Social History Observation Description Date Details (start date - stop date) Never Smoker NA - NA Tobacco Use/Smoking Question Answer Notes Are you a: nonsmoker Additional Findings: Tobacco Non-User Current no n-smoker Alcohol Screen Question Answer Notes Did you have a drink containing alcohol in the p ast year? No Points 0 Interpretation Negative Tobacco use other than smoking: Question Answer Notes Are you an other tobacco user? No Problems Problem Type SNOMED Code ICD Code Onset Dates Problem Status W/U Status Risk Notes Problem Acquired hallux rigidus (8196681) Hallux rigidus, left foot (M20.22) Active confirmed Problem Acquired hammer toe of right foot (5447069172365923 ) Other hammer toe(s) (acquired), right foot (M20.41) Active confirmed Problem Acquired hammer toe of left foot (7704337694575076 ) Other hammer toe(s) (acquired), left foot (M20.42) Active confirmed Problem Polyneuropathy due to type 2 diabetes mellitus (851118467) Type 2 diabetes mellitus with diabetic polyneuropathy (E11.42) Active confirmed Problem Polyneuropathy due to diabetes mellitus type I (272658533) Type 1 diabetes mellitus with diabetic polyneuropathy (E10.42) Active confirmed Problem Acquired hallux rigidus (5699729) Hallux rigidus, right foot (M20.21) Active confirmed Plan Of Treatment Pending Test Test Name Order Date X ray : Foot, left 3V 01/16/2022 X ray : Foot, right 3V 01/16/2022 [id number] SKIN LESIONS, OVER 4 04/14/20 [id number] SKIN LESIONS, 2 TO 4 01/17/20 [id number] DYSTROPHIC NAILS ANY # Insurance Providers Payer Name Payer Address Payer Phone Subscriber Number Group Number Insured Name Patient Relationship to Insured Coverage Start Date Coverage End Date [facility] [address] [place] [id number] Jaguar Nieves Self - patient is the insured Medical (General) History Medical History History ICD Code Arthritis Back,Hip,and Knee pain Broken bones skin cancer covid-19 type II diabetes Gout High blood pressure Numbness Poor circulation Measles Mumps Chicken pox Surgical History Surgery Date(Month/Year) eye detached retina 04/2021 gall bladder 2014 skin cancer face 11/22/21,11/29/21
== END 2025-03-21 14:22 | disposition home or self-care (01) ==
LOC: HO.HMCH 13:23
DX: I12.9 Hypertensive chronic kidney disease with stage 1 through stage 4 chronic kidney disease, or unspecified chronic kidney disease (principal); N18.31 Chronic kidney disease, stage 3a; E11.21 Type 2 diabetes mellitus with diabetic nephropathy; Z79.4 Long term (current) use of insulin; E78.00 Pure hypercholesterolemia, unspecified; R74.8 Abnormal levels of other serum enzymes; K76.0 Fatty (change of) liver, not elsewhere classified; Z85.820 Personal history of malignant melanoma of skin; M1A.9XX0 Chronic gout, unspecified, without tophus (tophi)

== ENCOUNTER 2025-03-21 13:22 | Outpatient (REF) | payer BC, SELFPAY | END 2025-03-21 13:23 | disposition home or self-care (01) | LOC: HO.LAB 13:22 | DX: I12.9 Hypertensive chronic kidney disease with stage 1 through stage 4 chronic kidney disease, or unspecified chronic kidney disease (principal); E11.22 Type 2 diabetes mellitus with diabetic chronic kidney disease; N18.31 Chronic kidney disease, stage 3a; E11.21 Type 2 diabetes mellitus with diabetic nephropathy; E78.00 Pure hypercholesterolemia, unspecified; R74.8 Abnormal levels of other serum enzymes; K76.0 Fatty (change of) liver, not elsewhere classified; M1A.9XX0 Chronic gout, unspecified, without tophus (tophi); Z85.820 Personal history of malignant melanoma of skin; Z79.4 Long term (current) use of insulin; Z79.899 Other long term (current) drug therapy; Z13.31 Encounter for screening for depression; Z13.39 Encounter for screening examination for other mental health and behavioral disorders | CPT/HCPCS: 96127 ==

== ENCOUNTER 2025-04-03 07:03 | Outpatient (REF) | payer BC, SELFPAY ==
--- OUTSIDE RECORDS SUMMARY | 2025-04-03 07:06 | XMS_ITS | Patient Health Record ---
Author Organization [facility] Address [address] [place] [address] Care Team Providers Care Car Rental Manager Name Role Phone Juan A Freeman MD Primary Care Provider Justino Grover Unavailable [phone] Allergies No Known Allergies Reason For Referral [...] Status Risk Notes Problem Acquired hallux rigidus (0707493) Hallux rigidus, left foot (M20.22) Active confirmed Problem Acquired hammer toe of right foot (2054719896387997 ) Other hammer toe(s) (acquired), right foot (M20.41) Active confirmed Problem Acquired hammer toe of left foot (8165458869573791 ) Other hammer toe(s) (acquired), left foot (M20.42) Active confirmed Problem Polyneuropathy due to type 2 diabetes mellitus (117000351) Type 2 diabetes mellitus with diabetic polyneuropathy (E11.42) Active confirmed Problem Polyneuropathy due to diabetes mellitus type I (200318901) Type 1 diabetes mellitus with diabetic polyneuropathy (E10.42) Active confirmed Problem Acquired hallux rigidus (9463187) Hallux rigidus, right foot (M20.21) Active confirmed Plan Of Treatment Pending Test Test Name Order Date X ray : Foot, left 3V 01/16/2022 X ray : Foot, right 3V 01/16/2022 [id number] SKIN LESIONS, OVER 4 04/14/20 [id number] SKIN LESIONS, 2 TO 4 01/17/20 [id number] DYSTROPHIC NAILS ANY # Insurance Providers Payer Name Payer Address Payer Phone Subscriber Number Group Number Insured Name Patient Relationship to Insured Coverage Start Date Coverage End Date [facility] [address] [place] [id number] Jaguar Nieves Self - patient is the insured Medical (General) History Medical History History ICD Code Arthritis Back,Hip,and Knee pain Broken bones skin cancer covid-19 type II diabetes Gout High blood pressure Numbness Poor circulation Measles Mumps Chicken pox Surgical History Surgery Date(Month/Year) eye detached retina 04/2021 gall bladder 2014 skin cancer face 11/22/21,11/29/21
[2025-04-03 08:08] LABS: Appearance Urine Clear; Glucose Urine UA >=1000 mg/dL (Negative); PH 5.5 (5.0-9.0); Specific Gravity - Urine 1.020 (1.005-1.025); UMIC TRIGGER UACC YES
[2025-04-03 08:22] LABS: Alanine Aminotransferase 52 U/L (0-40); Albumin Level 3.8 g/dL (3.5-5.0); Alkaline Phosphatase 70 U/L (39-117); Anion Gap 10 (12-20); Aspartate Amino Transferase 40 U/L (5-37); Blood Urea Nitrogen 34 mg/dL (9-16); Calcium 9.1 mg/dL (8.4-10.2); Carbon Dioxide 28 mmol/L (22-29); Chloride 108 mmol/L (96-108); Cholesterol 106 mg/dL (<200); Estimated Glomerular Filt Rate 47; HDL Cholesterol 47 mg/dL (>40); Potassium 4.7 mmol/L (3.3-5.1); Sodium 141 mmol/L (135-145); Total Protein 6.7 g/dL (6.5-8.0); Triglycerides 43 mg/dL (<150); Uric Acid 3.0 mg/dL (3.4-7.0)
== END 2025-04-03 07:04 | disposition home or self-care (01) ==
LOC: HO.LAB 07:03
DX: I12.9 Hypertensive chronic kidney disease with stage 1 through stage 4 chronic kidney disease, or unspecified chronic kidney disease (principal); N18.30 Chronic kidney disease, stage 3 unspecified; E78.00 Pure hypercholesterolemia, unspecified; E11.65 Type 2 diabetes mellitus with hyperglycemia; Z79.4 Long term (current) use of insulin; E11.22 Type 2 diabetes mellitus with diabetic chronic kidney disease; E11.42 Type 2 diabetes mellitus with diabetic polyneuropathy; K76.0 Fatty (change of) liver, not elsewhere classified; M10.9 Gout, unspecified; R74.8 Abnormal levels of other serum enzymes
CPT/HCPCS: 36415; 80053; 80061; 81001; 81003; 82306; 84443; 84550

== ENCOUNTER 2025-06-21 14:41 | Outpatient (AMB) | payer BC, SELFPAY ==
[2025-06-21 14:44] VITALS: BP 72/46; PULSE 65; TEMP 36.3; O2SAT 96; BMI 24.5
--- NOTE | 2025-06-21 14:44 | A.OFFPC_ITS ---
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 Required: No Accompanied by: Self / Same As Patient Allergies No Known Allergies Allergy (Verified 06/21/25 15:16) Medication List - Last Reconciled 06/21/25 by FRANC Bishop allopurinol 150 mg (1/2 x 300 mg) PO DAILY allopurinol mg PO ascorbate calcium (vitamin C) 500 mg PO DAILY blood sugar diagnostic (FreeStyle Lite Strips) 1 strip miscellaneous QID 30 days blood-glucose meter (FreeStyle Lite Meter kit) As directed to test blood sugar at least 4 times a day colchicine 0.6 mg PO DAILY dulaglutide (Trulicity) 1.5 mg (0.5 mL) subcut QWEEK duloxetine 60 mg PO DAILY empagliflozin (Jardiance) 25 mg PO DAILY gabapentin 400 mg PO TID lancets (FreeStyle Lancets) 3 times a day Lantus Solostar U-100 Insulin (insulin glargine) 20 units (0.2 mL) subcut QPM 30 days NS lisinopril 20 mg PO BID pen needle, diabetic (BD Beth 2nd Gen Pen Needle) test 4x's daily rosuvastatin 5 mg PO DAILY zinc acetate (Galzin) 50 mg PO DAILY Tobacco use date assessed: 06/21/25 Dental Screening Dental Screen Date: 06/21/25 Did you have a dental visit in the last 12 months?: Yes Did you have a dental problem in the last 6 months where you did not have access to dental care?: No Was dental information given to patient?: Patient has dentist HPI 3 mnth f/u HPI Details a1c 6.5% bp low hold lisinopril and have the patient come back in 1 week for blood pressure check uric acid is low 3.0- questioned decreasing allopurinol PFSH Medical History Type 2 diabetes mellitus with diabetic nephropathy Non-alcoholic fatty liver disease Elevated liver enzymes CKD (chronic kidney disease) stage 3, GFR 30-59 ml/min alf (current) use of insulin Diabetes type 2, uncontrolled Hypercholesteremia HTN (hypertension) Diabetes mellitus Surgical History Hx of melanoma excision Hx of eye surgery Hx of cholecystectomy History of colonoscopy Family History Father History of cancer History of heart attack Mother Alive and well Social History Housing: House Alcohol intake: never Patient Tobacco Use Status: Never used Tobacco e-Cigarette/Vaping Use: Never Used Second Hand Smoke Exposure: No service: No Current occupational status: employed Cognitive needs: No Hearing needs: No Vision needs: No Questionnaire PHQ-9 Over the last 2 weeks, how often have you been bothered by any of the following problems? Depression Screening Interpretation: Negative Depression Screening Done: Yes Source: Developed by Drs. Bari Haas, Kim Matthew, Chance Snatana and colleagues, with an educational bhargavi from [employer] (ABAM). Thrive Questionnaire Date Thrive assessed: 03/21/25 I am a: Patient What is your living situation today?: I have a steady place to live Within the past 12 months, did the food you bought not last and you didn't have the money to get more?: Never true Within the past 12 months, did you worry whether your food would run out before you got money to buy more?: Never true Do you have trouble paying for medicines?: No Do you have trouble getting transportation to medical appointments?: No Do you have trouble paying your heating and electricity bill?: No Do you have trouble taking care of your child, family member or friend?: No Do you have trouble with day-to-day activities such as bathing, preparing meals, shopping, managing finances, etc.?: No Are you currently unemployed and looking for a job?: No Are you interested in more education?: No Please select the resources that you would like help with: None Currently or been in a relationship where the following occur: No concerns reported THRIVE Score: 0 MAVIS-7 AMB Questionnaire MAVIS-7 Date MAVIS - 7 assessed: 03/21/25 Source: Developed by Drs. Bari Haas, Kim Matthew, Chance Santana and colleagues, with an educational bhargavi from [employer] (ABAM). Review of Systems Const Denies headache(s) Eyes Denies loss of vision ENT Denies vertigo, Denies dizziness, Denies headache(s) and Denies sore throat Card Denies chest pain, Denies leg edema and Denies lightheadedness Resp Denies cough, Denies hemoptysis and Denies wheezing GI Denies abdominal pain, Denies melena, Denies constipation, Denies diarrhea and Denies vomiting Denies dysuria, Denies urinary frequency and Denies urinary urgency Musc Reports arthralgias (both knee and ankle), Denies joint swelling, Reports numbness (finger (pointers, middle and thumb) on both hands) and Denies tingling Neuro Denies Abnormal speech present, Denies behavioral changes, Denies vertigo, Denies dizziness, Denies headache(s), Denies loss of vision, Denies memory loss, Reports numbness (finger (pointers, middle and thumb) on both hands) and Denies tingling Psych Denies anxiety, Denies behavioral changes, Denies depression, Denies memory loss and Denies panic attacks Kirill/Lymph Denies easy bleeding and Denies easy bruising Aller/Immun Denies wheezing Physical exam (Primary Care) Vital Signs: Last Vital Signs Temp 97.3 F 06/21/25 14:44 Pulse 65 06/21/25 14:44 BP 78/54 L 06/21/25 15:15 Pulse Ox 96 06/21/25 14:44 Oxygen Delivery Method Room Air 06/21/25 14:44 BMI result Body Mass Index 24.5 Tobacco/Smoking Status: Tobacco use Status Tobacco use date assessed 06/21/25 06/21/25 14:45 Patient Tobacco Use Status Never used Tobacco 06/21/25 14:45 e-Cigarette/Vaping Use Never Used 06/21/25 14:45 Depression Screening Interpretation: Negative Thrive Assessment: Date of Thrive Assessment Date Thrive assessed 03/21/25 06/21/25 14:45 Currently or been in a relationship where the following occur: No concerns reported Const General: healthy appearing, no acute distress, alert and awake Nutritional Appearance: well nourished Orientation/consciousness: oriented to person, oriented to place and oriented to time HENMT Ears: TM's normal bilaterally General nose exam: Normal nasal mucous membranes and turbinates present Eyes Conjunctivae: conjunctivae normal Sclerae: sclerae normal Pupils: Equal, round and reactive pupils present Neck Neck: Yes no lymphadenopathy and Yes no JVD Thyroid: Thyroid normal Carotids: no bruits Resp Effort & Inspection: normal respiratory effort and not tachypneic Auscultation: no crackles, no rales, no rhonchi and no wheezes Cardio Rate: regular rate Rhythm: regular rhythm Heart sounds: no murmurs and normal S1 and S2 GI Palpation (GI): Soft to palpation, nontender, no hepatomegaly and no splenomegaly Auscultation: normal bowel sounds Skin General skin exam: no rashes or lesions noted and dry skin Neuro General: oriented to person, oriented to place and oriented to time Cranial nerves: Yes Equal, round and reactive pupils present Speech: No Abnormal speech present Gait exam (Neuro): Normal gait present Motor exam (neuro): no tremor noted Extrem Right upper extremity: full ROM Left upper extremity: full ROM Right lower extremity: full ROM, knee Details: no tenderness and no swelling and ankle Details: no tenderness and no swelling; no edema Left lower extremity: full ROM, knee Details: no tenderness and no swelling and ankle Details: no tenderness and no swelling; no edema Psych Mental Status: mental status grossly normal Speech and movement: Normal speech and movement present Affect: normal affect Attitude: cooperative Thought process: Normal thought process present Results AMB Hemoglobin A1c AMB Hemoglobin A1c 6.5 % Last Edit by Bhakti Redd MA on 06/21/25 15:27 Results Reviewed Results Reviewed: Laboratory Tests 04/03/25 06/21/25 07:22 15:24 Sodium 141 Potassium 4.7 Chloride 108 Carbon Dioxide 28 Anion Gap 10 L BUN 34 H Creatinine 1.50 H Estimated GFR 47 Fasting Glucose 107 H Hgb A1c (Clinic) 6.5 H Uric Acid 3.0 L Calcium 9.1 Total Bilirubin 0.5 AST 40 H ALT 52 H Alkaline Phosphatase 70 Total Protein 6.7 Albumin 3.8 Triglycerides 43 Cholesterol 106 LDL Cholesterol, Calc 51 HDL Cholesterol 47 25-OH Vitamin D Total 54.7 TSH 1.07 Urine Color Yellow Urine Appearance Clear Urine pH 5.5 Ur Specific [place] 1.020 Urine Protein Negative Urine Glucose (UA) >=1000 H Urine Ketones Negative Urine Blood Negative Urine Nitrite Negative Ur Leukocyte Esterase Negative Urine RBC 0-2 Urine WBC 0-5 Ur Squamous Epith Cells 0-2 Urine Bacteria None Seen Hyaline Casts 0-2 Coding Diagnoses Hypertension, unspecified type I10 Hypertension type: unspecified Hypercholesteremia E78.00 alf (current) use of insulin Z79.4 Elevated liver enzymes R74.8 Non-alcoholic fatty liver disease K76.0 Stage 3a chronic kidney disease N18.31 Chronic kidney disease stage 3 subtype: stage 3a (GFR 45-59) Personal history of malignant melanoma of skin Z85.820 Chronic gout without tophus, unspecified cause, unspecified site [id number].[id number] Gout site: unspecified site Gout etiology: unspecified cause Chronicity: chronic Presence of tophus: without tophus Type 2 diabetes mellitus with diabetic nephropathy, with long-term current use of insulin E11.21; Z79.4 Diabetes mellitus terminal operations manager insulin use: with terminal operations manager use Assessment & Plan Assessment & Plan (1) HTN (hypertension): Code(s): I10 - Essential (primary) hypertension Category: Medical Qualifiers: Hypertension type: unspecified Qualified Code(s): I10 - Essential (primary) hypertension Plan: Blood pressure was 90/54 in office. Lisinopril 40 mg b.i.d. was decreased to 20 mg b.i.d. At nurse visit the patient blood pressure was 114/62. Reports that he lost over 200 lbs and has been decreasing his salt intake.However, the patient blood pressure 72/46, and 78/54 on recheck in office. The patient is asymptomatic, lisinopril 20mg bid held, he is to return in one week for blood pressure check and also purchase a blood pressure machine to start checking blood pressure at home. (2) Hypercholesteremia: Code(s): E78.00 - Pure hypercholesterolemia, unspecified Category: Medical Plan: Triglycerides 43, total cholesterol 6, LDL 51, HDL 47. Continue rosuvastatin 5 mg daily. Reinforced low-cholesterol diet and activity as tolerated (3) watermaster (current) use of insulin: Code(s): Z79.4 - watermaster (current) use of insulin Category: Medical Plan: Continue Lantus 20 units at p.m. (4) Elevated liver enzymes: Code(s): R74.8 - Abnormal levels of other serum enzymes Category: Medical Plan: History of fatty liver. Liver continues to be elevated. AST 40, ALT 52. Avoid alcohol or medication containing Tylenol CMP ordered to further evaluate (5) Non-alcoholic fatty liver disease: Code(s): K76.0 - Fatty (change of) liver, not elsewhere classified Category: Medical Plan: Avoid alcohol, medications containing Tylenol, and fatty foods (6) CKD (chronic kidney disease) stage 3, GFR 30-59 ml/min: Code(s): N18.30 - Chronic kidney disease, stage 3 unspecified Category: Medical Qualifiers: Chronic kidney disease stage 3 subtype: stage 3a (GFR 45-59) Qualified Code(s): N18.31 - Chronic kidney disease, stage 3a Plan: Encouraged adequate hydration. Avoid NSAIDs (7) Personal history of malignant melanoma of skin: Code(s): Z85.820 - Personal history of malignant melanoma of skin Category: Medical Plan: History. No reoccurrence. We will continue to monitor (8) Gout: Code(s): M10.9 - Gout, unspecified Category: Medical Qualifiers: Gout site: unspecified site Gout etiology: unspecified cause Chronicity: chronic Presence of tophus: without tophus Qualified Code(s): M1A.9XX0 - Chronic gout, unspecified, without tophus (tophi) Plan: Uric acid 3.0L. Continue allopurinol 150 mg daily (9) Type 2 diabetes mellitus with diabetic nephropathy: Code(s): E11.21 - Type 2 diabetes mellitus with diabetic nephropathy Category: Medical Qualifiers: Diabetes mellitus senior care insulin use: with terminal operations manager use Qualified Code(s): E11.21 - Type 2 diabetes mellitus with diabetic nephropathy; Z79.4 - alf (current) use of insulin Plan: Patient reports that he goes to endocrine in [place] but isn't sure of the name. Reports that his latest A1c was 6.5%. Encouraged low sugar/carbohydrate diet Continue Trulicity 1.5 mg q.week, Lantus 20 units at bedtime Continue gabapentin 400 mg t.i.d. Orders: Orders AMB Hemoglobin A1c Today Z13.9 - Encounter for screening, unspecified Medications: On Hold lisinopril Hold Comment: Doctor's Order 20 mg PO BID 90 tabs 3RF
[2025-06-21 15:15] VITALS: BP 78/54
--- OUTSIDE RECORDS SUMMARY | 2025-06-21 19:06 | XMS_ITS | Clinical Summary ---
Author Organization [facility] Address [address] [address] Phone Care Team Providers Care Dance Hall Host/Hostess Name Role Phone Emilio Corral CAMPAIGN MANAGEMENT SENIOR MANAGER Primary Care Provider Allergies No known active allergies Medications cholecalciferol (VITAMIN D3) 25 MCG (1,000 unit) tabletIndications: unsure strength Take by mouth daily. Indications: unsure strength Active ascorbic acid (VITAMIN C ORAL) Take 1,000 mg by mouth. Active ALPHA LIPOIC ACID ORAL Take 600 mg by mouth. Active Medication-Free Text Laurie Apple Cider Vinegar Active ONETOUCH UKTRA2 meter kit Use as instructed 1 kit 04/21/20 24 Active blood sugar diagnostic Strp strips 1 each by Miscellaneous route as needed. USE FOUR TIMES DAILY 100 strip 3 06/27/20 24 Active ONETOUCH ULTRA TEST Strp stripsIndications: Type 2 diabetes mellitus with microalbuminuria, without long-term current use of insulin 1 each by Miscellaneous route 4 (four) times a day. 400 strip 3 06/27/20 24 Active ONETOUCH ULTRA TEST Strp strips 1 each by Miscellaneous route 2 (two) times a day. 200 strip 3 06/27/20 24 Active empagliflozin (JARDIANCE) 25 mg tabletIndications: Type 2 diabetes mellitus with diabetic polyneuropathy, without long-term current use of insulin Take 1 tablet (25 mg total) by mouth daily. 90 tablet 1 09/05/19 25 Active LANTUS SOLOSTAR U-100 INSULIN 100 unit/mL (3 mL) InPn injection penIndications:Typ e 2 diabetes mellitus with diabetic polyneuropathy, without long-term current use of insulin Inject 25 Units under the skin nightly at bedtime. 30 mL 1 09/05/19 25 Active lisinopril (PRINIVIL,ZESTRIL) 40 MG tabletIndications: Essential hypertension Take 1 tablet (40 mg total) by mouth daily. 90 tablet 1 09/05/19 25 Active allopurinol (ZYLOPRIM) 100 MG tabletIndications: Chronic tophaceous gout Take 1 tablet (100 mg total) by mouth daily. Together with ONE 300 mg tab for total daily dose 400 mg 90 tablet 3 11/01/19 25 Active DULoxetine (CYMBALTA) 60 MG capsuleIndications :Neuropathy,Polyar ticular osteoarthritis TAKE 1 CAPSULE(60 MG) BY MOUTH DAILY 90 capsule 1 01/03/20 25 Active allopurinol (ZYLOPRIM) 300 MG tabletIndications: Chronic tophaceous gout TAKE 1 TABLET(300 MG) BY MOUTH DAILY. TOGETHER WITH 100 MG TABLET DIRECTED 90 tablet 1 03/17/20 25 Active rosuvastatin (CRESTOR) 5 MG tabletIndications: Hyperlipidemia LDL goal <100 TAKE 1 TABLET BY MOUTH DAILY 90 tablet 1 03/20/20 25 Active gabapentin (NEURONTIN) 400 MG capsuleIndications :Neuropathy TAKE 1 CAPSULE(400 MG) BY MOUTH THREE TIMES DAILY 270 capsule 1 03/20/20 25 Active colchicine (COLCRYS) 0.6 mg tabletIndications: Chronic tophaceous gout Take 1 tablet (0.6 mg total) by mouth every other day. TOGETHER WITH ALLOPURINOL 45 tablet 04/12/20 25 Active insulin pen needles, disposable, (BD PAMELA 2ND GEN PEN NEEDLE) 32 gauge x 5/32 Ndle Inject 1 each under the skin every morning. 100 each 3 05/03/20 25 Active OZEMPIC 1 mg/dose (4 mg/3 mL) subcutaneous injection penIndications:Typ e 2 diabetes mellitus with diabetic polyneuropathy, without long-term current use of insulin INJECT 1 MG UNDER THE SKIN EVERY 7 DAYS 9 mL 05/22/20 25 Active Active Problems Problem Noted Date Diagnosed Date [...] the LDL associated with elevated transaminases. 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 and ezetimibe and [...] from previous) Pt advised to f/u with specialty finishing utility person Assessment & Plan (02/08/2021 4:08 PM EDT): [...] today Encouraged pt to maintain f/u with specialty finishing utility person for CKD Heel spur, unspecified laterality 12/30/2019 Encounters Date Type Department Care Team Description 05/21/2025 Refill [facility] [address] [place] [address] Leonid Atkinson, DO Medication Refill 05/03/2025 Refill [facility] [address] [place] [address] Fina Carreon [place] Medication Refill (BD PEN NEEDLE) 04/12/2025 Refill [facility] [address] [place] [address] Halima Dickinson CMA Medication Refill from Last 3 Months Family [...] Care Team (Late st Contact Info) Description 09/04/2025 3:40 PM EST Office Visit [facility] Rheumatology [address] [place] [address] Anali Morna MD, MPH [address] [facility], [address] [place] [address] [email or web address] Health Maintenance Due Date Last Done Comments Adult Td,Tdap Booster 1962 DEPRESSION SCREENING 1974 HEPATITIS C SCREENING 01/27/1980 HIV ONE-TIME SCREENING (18-65 YEARS) 01/27/1980 PNEUMOCOCCAL VACCINES (50+ years) (1 of 2 - PCV) 1981 COLOGUARD 2007 COLONOSCOPY 2007 COLORECTAL CANCER SCREENING 2007 FIT TEST 2007 FOBT 2007 SIGMOIDOSCOPY 2007 VIRTUAL COLONOSCOPY 2007 RSV VACCINE (1 - Risk 50-74 years 1-dose series) 01/27/2012 ZOSTER VACCINES (1 of 2) 01/27/2012 DIABETIC EYE EXAM 02/13/2023 INFLUENZA VACCINE (#1) 2025 09/04/2016 COVID-19 VACCINE (2024- season) 2025 08/27/2021, 12/15/2020, 11/17/2020 CREATININE LEVEL 08/23/2025 08/23/2024, [...] EST) SODIUM 138 133 - 146 mmol/L [facility] POTASSIUM 4.8 3.3 - 5.1 mmol/L [facility] CHLORIDE 101 96 - 108 mmol/L [facility] CO2 30 21 - 35 mmol/L [facility] BUN 26(H) 6 - 19 mg/dL [facility] CREATININE 1.60(H) 0.5 - 1.5 mg/dL [facility] GLUCOSE 177(H) 70 - 99 mg/dL [facility] ALBUMIN 3.7(L) 3.9 - 4.8 g/dL [facility] TOTAL PROTEIN 6.6 6.5 - 8.0 g/dL [facility] CALCIUM 9.2 8.4 - 10.3 mg/dL [facility] ALKALINE PHOSPHATASE 121(H) 39 - 117 U/L [facility] TOTAL BILIRUBIN 0.5 0.0 - 1.2 mg/dL [facility] AST 383(H) 0 - 37 U/L [facility] ALT 271(H) 0 - 40 U/L [facility] GLOBULIN 2.9 1 - 4.8 g/dL [facility] EGFR 48(L) >59 mL/min/1.7 3m2 [facility] Comment:Estimated glomerular filtration rate calculated using the CKD-EPI refit equation. ANION GAP 12 10 - 20 mmol/L [facility] Blood 08/23/2024 9:18 AM EST 08/23/2024 9:29 AM EST us Anali Moran MD, MPH LAB BLOOD ORDERABLES Fin al Result Performing Organization Address City/State/[facility] Co de Phone Number [address] [address] from Last 3 Months or Most Recently Relevant to Health Maintenance Insurance [address] [address] [place] [id number] [place] [address] Care Teams Dance Hall Host/Hostess Relationship Specialty Start Date End Date Emilio Corral NP [address] [place] [address] [place] [id number] PCP - General Nurse Practitioner 03/06/25 Additional Source Comments The information contained in this document represents components of the legal health record. It is not the complete legal health record.[facility]
--- OUTSIDE RECORDS SUMMARY | 2025-06-21 19:06 | XMS_ITS | Patient Health Record ---
Author Organization [facility] Address [address] [place] [address] Care Team Providers Care Internet Marketing Analyst Name Role Phone Juan A Freeman MD Primary Care Provider UnavailJustino Chowdhury Unavailable [phone] Allergies No Known Allergies Reason For Referral [...] Status Risk Notes Problem Acquired hallux rigidus (9367550) Hallux rigidus, left foot (M20.22) Active confirmed Problem Acquired hammer toe of right foot (1316572737984152 ) Other hammer toe(s) (acquired), right foot (M20.41) Active confirmed Problem Acquired hammer toe of left foot (9692804366395887 ) Other hammer toe(s) (acquired), left foot (M20.42) Active confirmed Problem Polyneuropathy due to type 2 diabetes mellitus (590995189) Type 2 diabetes mellitus with diabetic polyneuropathy (E11.42) Active confirmed Problem Polyneuropathy due to diabetes mellitus type I (895518436) Type 1 diabetes mellitus with diabetic polyneuropathy (E10.42) Active confirmed Problem Acquired hallux rigidus (1499999) Hallux rigidus, right foot (M20.21) Active confirmed Plan Of Treatment Pending Test Test Name Order Date X ray : Foot, left 3V 01/16/2022 X ray : Foot, right 3V 01/16/2022 [id number] SKIN LESIONS, OVER 4 04/14/20 [id number] SKIN LESIONS, 2 TO 4 01/17/20 22 [id number] DYSTROPHIC NAILS ANY # Insurance Providers Payer Name Payer Address Payer Phone Subscriber Number Group Number Insured Name Patient Relationship to Insured Coverage Start Date Coverage End Date [facility] [address] [place] [address] [id number] [employer] Self - patient is the insured Medical (General) History Medical History History ICD Code Arthritis Back,Hip,and Knee pain Broken bones skin cancer covid-19 type II diabetes Gout High blood pressure Numbness Poor circulation Measles Mumps Chicken pox Surgical History Surgery Date(Month/Year) eye detached retina 04/2021 gall bladder 2013 skin cancer face 11/22/21,11/29/21
--- OUTSIDE RECORDS SUMMARY | 2025-06-21 19:06 | XMS_ITS | Data Portability ---
Author Organization [facility] Address [address] [place] [phone] Care Team Providers Care Envelope Machine Adjuster Name Role Phone BIANCA SHRESTHA Primary Care Provider [phone] Assessment No assessment recorded. Plan of Treatment Reminders Order Date Submit Date Provider Last Modified By Organization Details Last Modified Time Details Appointments None recorded. Lab None recorded. Referral None recorded. Procedures None recorded. Surgeries None recorded. Imaging electrocard iogram 2020 021 [facility], [address] [place] [address], [phone], 15:43:53 Medication Orders None recorded. Patient TargetsNo targets recorded. Patient InstructionsNo instructions recorded. Reason for Referral None Reported. Results Created Date Observation Date Name Description Value Unit Range Abnormal Flag Note LastModifiedBy Organization Detail LastModifiedTime 05/03/20 21 05/03/2021 ford keen am No observ ation record ed. [facility] [address] [place] [address], [phone], 05/03/2021 15:43:53 Result Notes None recorded. Problems Name Problem SNOMED Code Status Onset Date Resolution Date Notes Provider Name and Address Organization Details Recorded Time Type 2 diabetes mellitus 11242366 Active 2020 David sandoval, [facility] 15:15:40 Hypertensi ve disorder 98254993 Active 2020 David sandoval, [facility] 15:15:48 Retinal tear of right eye 308206204 Active 2020 David sandoval, [facility] 15:16:00 Non-smoker 8283088 Active 2020 David Singleton null, [facility] 15:16:22 Gout 77422554 Active 2020 David Singleton null, [facility] 15:16:35 Chronic kidney disease stage 3 289987194 Active 2020 approachin g stage 4 per patient David Singleton null, [facility] 15:17:13 Problem Notes None recorded. Procedures Surgical History Date Name Laterality Status Provider Name and Address Organization Details Recorded Time procedure on gallbladder completed David Singleton [facility] 05/03/2021 15:17:38 Imaging Results None recorded. Procedure Notes None recorded. Medical Equipment None Reported. Allergies No known drug allergies Medications Name Sig Start Date Stop Date Status Note LastModified by Organization Details LastModified Time freestyle milan lite active Not Available Not Available Not Available amoxicillin 500 mg capsule TAKE 1 CAPSULE BY MOUTH THREE TIMES DAILY 05/03 completed Not Available Not Available Not Available atorvastati n 10 mg tablet TAKE 1 TABLET BY MOUTH EVERY DAY active Not Available Not Available No t Available ofloxacin 0.3 % eye drops INSTILL 1 DROP IN RIGHT EYE FOUR TIMES DAILY BEFORE SURGERY FOR 3 DAYS. CONTINUE AFTER SURGERY active Not Available Not Available No t Available gabapentin 400 mg capsule TAKE 1 CAPSULE BY MOUTH THREE TIMES DAILY active Not Available Not Available No t Available amoxicillin 875 mg tablet TAKE 1 TABLET BY MOUTH TWICE DAILY UNTIL GONE 05/03 completed Not Available Not Available Not Available prednisolon e acetate 1 % eye drops,suspe nsion SHAKE LIQUID AND INSTILL 1 DROP IN RIGHT EYE FOUR TIMES DAILY AFTER SURGERY active Not Available Not Available No t Available indomethaci n 25 mg capsule TAKE 1 TO 2 CAPSULE THREE TIMES DAILY NEEDED FOR GOUT active Not Available Not Available No t Available allopurinol 300 mg tablet TK 1 T PO QD active Not Available Not Available No t Available bisacodyl 5 mg tablet,javad yed release TK 2 TS PO ONCE AT NOON THE DAY BEFORE YOUR COLONOSCO PY active Not Available Not Available No t Available polyethylen e glycol 3350 17 gram/dose oral powder DISSOLVE 17 GRAMS ONCE IN LIQUID AND DRINK UTD [facility] T active Not Available Not Available No t Available atropine 1 % eye drops INSTILL 1 DROP IN RIGHT EYE TWICE DAILY AFTER SURGERY active Not Available Not Available No t Available lisinopril 40 mg tablet TAKE 1 TABLET BY MOUTH TWICE DAILY active Not Available Not Available No t Available duloxetine 30 mg capsule,del ayed release one po qd active Not Available Not Available No t Available FreeStyle Lite Strips USE FOUR TIMES DAILY active Not Available Not Available No t Available Lantus Solostar U-100 Insulin 100 unit/mL (3 mL) subcutaneou s pen INJECT 35 UNITS UNDER SKIN EVERY EVENING active Not Available Not Available No t Available Invokana 100 mg tablet TAKE 1 TABLET BY MOUTH DAILY active Not Available Not Available No t Available Trulicity 1.5 mg/0.5 mL subcutaneou s pen injector ADMINISTE R 1.5 MG UNDER THE SKIN EVERY WEEK active Not Available Not Available No t Available BD Beth 2nd Gen Pen Needle 32 gauge x 5/32 USE ONCE DAILY DIRECTED active Not Available Not Available No t Available Vitals Date Recorded Body height Heart rate Body temperature Oxygen saturation Oxygen saturation in Arterial blood by Pulse oximetry Provider Name and Address Organization Details Last Updated DateTime 1 190.5 cm 61 /min 97.1 [degF] 98 % 98 % Erma [facility] 1 14:28:19 Date Recorded Body mass index (BMI) Body weight Provider Name and Address Organization Details Last Updated DateTime 05/03/2021 29.2 kg/m2 448620.61 g David CH[facility]VEZ/W IP 05/03/2021 15:14:25 Social History None recorded. Functional Status None recorded. Mental Status None recorded. Family History Nothing Reported. Medical History No medical history recorded. Past Encounters Encounter ID Performer Location Encounter Start Date Encounter Closed Date Diagnosis/Indication Diagnosis SNOMED-CT Code Diagnosis ICD10 Code Diagnosis IMO Codes Diagnosis Note [id number] [facility] [address] [place] [phone] 05/03/2021 14:11:26 05/03/2021 15:29:53 Pre-surgery evaluation 570325830 Z01.818 ~reasonabl e to proceed forward with surgery ~no neck issues ~no dentures, partials or removable teeth ~can walk 4mph and climb stairs with out cardiac complaints ~no hx of allergic reactions to anesthesia ~no stated substance abuse to be concerned with Type 2 helen betes mellitus 08280206 E11.37X9 last a1c in 6's well controlled Chronic ki dney disease stage 3 915536943 N18.30 on ACEStage 3managed Hypertensive disorder 38 309547 I10 at goal today Gout 99590389 M10.9 none for a long time Health Concerns Section Related Observation LastModified by Organization Detai ls LastModified Time None Recorded Concern Status LastModified by Organization Details LastModified Time None Recorded Advance Directives Directive None Recorded Payers Insurance Date Sequence Insurance Name Policy Number Policy Whitehead Covered Member ID Whitehead Member ID Guarantor Name 05/03/[address] [place] [address] [id number] [employer] [id number] [employer] Notes Date Note Type Note Provider Name and Address Organization Details Recorded Time 05/03/2021 text/html Pre-OpReported b y PatientHPIFor risk factors, patient reportsno cognitive impairment,no functional impairment,no malnutrition,no frailty,able to climb a flight of stairs (exercise capacity>4 mets),no obstructive sleep apnea,non-smoker,no alcohol misuse,no illicit drug use,no chronic cardiopulmonary condition, andnot obese. For anesthesia hx, patient reportsno hx of anesthesia complications,no allergy to anesthetic agents, andno family history of anesthesia complications. For functional ability, patient reportsable to walk up stairs,able to perform heavy work around the house,no difficulty walking up hills, andable to walk 4 mph. For post-op support, patient reportsno need for assistance. For surgery to be performed, (right eye retinal tear noticed 2 days ago - surgery on thursday at [facility]). DM - FBS 80-90well controlled David sandoval [place] - [facility] 05/03/2021 15:25:54
== END 2025-06-21 15:37 | disposition home or self-care (01) ==
LOC: HO.HMCH 14:43
DX: Z13.9 Encounter for screening, unspecified (principal)

== ENCOUNTER → 2025-06-21 14:41 | Outpatient (BNVA) | payer BC, SELFPAY | DX: E11.22 Type 2 diabetes mellitus with diabetic chronic kidney disease (principal); I12.9 Hypertensive chronic kidney disease with stage 1 through stage 4 chronic kidney disease, or unspecified chronic kidney disease; N18.9 Chronic kidney disease, unspecified; E78.00 Pure hypercholesterolemia, unspecified; R74.8 Abnormal levels of other serum enzymes; K76.0 Fatty (change of) liver, not elsewhere classified; N18.31 Chronic kidney disease, stage 3a; Z85.820 Personal history of malignant melanoma of skin; M1A.9XX0 Chronic gout, unspecified, without tophus (tophi); E11.21 Type 2 diabetes mellitus with diabetic nephropathy; Z79.4 Long term (current) use of insulin; Z79.899 Other long term (current) drug therapy | CPT/HCPCS: 83036 ==